=== PATIENT | male | born 1975 | race American Indian/Alaskan Native ===

== ENCOUNTER 2021-01-05 15:59 | Inpatient (IN) | payer OTHER ==
--- NOTE | 2021-01-05 17:16 | Event Note ---
ED Screening Note Date of service: 01/05/21 Time: 17:15 ED Screening Note: 45-year-old male presents to the ER today with complaints of shortness of breath. He states that symptoms started a couple days ago has been getting worse. He reports mild associated cough but no other symptoms. Past medical history significant for congestive heart failure, hypertension and hyperlipidemia. Patient states that he is lost insurance and has been out of his medication for about a year. He stopped smoking about 2 years ago This initial assessment/diagnostic orders/clinical plan/treatment(s) is/are subject to change based on patients health status, clinical progression and re- assessment by fellow clinical providers in the ED. Further treatment and workup at subsequent clinical providers discretion. Patient/guardian urged not to elope from the ED as their condition may be serious if not clinically assessed and managed. Initial orders include: Chest pain order set
[2021-01-05 18:02] LABS: Basophils # (Auto) 0.1 K/mm3 (0.0-0.1); Basophils % (Auto) 1.7 % (0.0-1.8); Eosinophils # (Auto) 0.1 K/mm3 (0.0-0.4); Hematocrit 36.6 % (35.5-45.6); Hemoglobin 11.3 gm/dl (11.8-15.2); Lymphocytes # (Auto) 1.2 K/mm3 (1.2-5.4); Lymphocytes % (Auto) 22.6 % (13.4-35.0); Mean Corpuscular HGB Conc 31 % (32-34); Mean Corpuscular Volume 87 fl (84-94); Monocytes # (Auto) 0.4 K/mm3 (0.0-0.8); Platelet Count 268 K/mm3 (140-440); Red Blood Count 4.24 M/mm3 (3.65-5.03); Red Cell Distribution Width 19.7 % (13.2-15.2)
[2021-01-05 18:09] LABS: Creatine Kinase MB 3.5 ng/mL (0.0-4.0)
[2021-01-05 18:12] LABS: Albumin 3.8 g/dL (3.9-5); Calcium 9.2 mg/dL (8.4-10.2)
[2021-01-05 18:14] LABS: INR 1.35 (0.87-1.13)
[2021-01-05 18:15] LABS: Partial Thromboplastin Time 34.9 Sec. (24.2-36.6)
[2021-01-05 18:37] LABS: Chol/HDL Ratio 4.36 %
[2021-01-05] MEDS ORDERED: FUROSEMIDE 40 MG/4 ML INJ IV ONE (18:45)
[2021-01-05] MEDS ORDERED: ASPIRIN 81 MG TAB CHEW PO ONE (18:45)
--- NOTE | 2021-01-05 18:50 | Emergency Department Report ---
ED General Adult HPI - General Chief complaint: Chest Pain Stated complaint: shortness of breath PUI?: No Time Seen by Provider: 01/05/21 18:37 Source: patient, RN notes reviewed Mode of arrival: Ambulatory Limitations: No Limitations - History of Present Illness Initial comments: The patient was evaluated in the emergency department for symptoms described in the history of present illness. He/she was evaluated in the context of the global COVID-19 pandemic, which necessitated consideration that the patient might be at risk for infection with the virus that causes COVID-19. Institutional protocols and algorithms that pertain to the evaluation of patients at risk for COVID-19 are in a state of rapid change based on info rmation released by regulatory bodies including the CDC and federal and state organizations. These policies and algorithms were followed during the patient's care in the emergency department. Please note that these policies, procedures and recommendations changed on a rapid basis. The patient is a 45-year-old gentleman. He is not known to myself previously. He has a history of CHF, diagnosed at [facility] 2 years ago. He occasionally consumes tobacco. He has been noncompliant with his medications for about a year. He does not know his ejection fraction. He presents to the ER today with a complaint of painless shortness of breath. The patient denies headache, neck pain, chest pain, abdominal pain. He denies travel, surgery, immobilization, leg pain, and personal/family history of DVT and pulmonary embolism. He went to an outpatient urgent care center today, was found to have a "abnormal" EKG, and was thus referred to the emergency room. His shortness of breath is painless, increases with ambulation, and decreases with rest. He chronically sleeps on one pillow. He has not received his Covid vaccination. He does not have a local primary care doctor or psychology lecturer. He denies loss of taste and smell. He came in today because his family is concerned about his exertional shortness of breath. He does feel like he has lower extremity swelling. -: Gradual, days(s) Consistency: constant Improves with: rest Worsens with: movement - Related Data Allergies Allergy/AdvReac Type Severity Reaction Status Date / Time No Known Allergies Allergy Unverified 01/05/21 16:04 ED Review of Systems ROS: Stated complaint: CHEST DISCOMFORT/EKG @DR OFFICE Other details as noted in HPI Constitutional: weakness, other (Denies loss of taste and smell). denies: fever ENT: congestion Respiratory: shortness of breath, SOB with exertion, SOB at rest Cardiovascular: dyspnea on exertion, orthopnea, edema, paroxysmal nocturnal dyspnea. denies: chest pain Gastrointestinal: denies: hematemesis, melena, hematochezia Genitourinary: denies: dysuria Musculoskeletal: denies: back pain Neurological: weakness Hematological/Lymphatic: denies: easy bleeding ED Past Medical Hx - Past Medical History Previous Medical History?: Yes Hx Hypertension: Yes Hx Congestive Heart Failure: Yes - Surgical History Past Surgical History?: No ED Physical Exam - General Limitations: No Limitations General appearance: alert, anxious, obese - Head Head exam: Present: atraumatic, normocephalic - Eye Eye exam: Present: normal appearance, EOMI. Absent: nystagmus - ENT ENT exam: Present: normal exam, normal orophraynx, mucous membranes moist - Neck Neck exam: Present: normal inspection, full ROM. Absent: tenderness, meningismus - Respiratory Respiratory exam: Present: rales, accessory muscle use. Absent: respiratory distress, wheezes, rhonchi, stridor - Cardiovascular Cardiovascular Exam: Present: normal rhythm, tachycardia, JVD (6 cm of JVD). Absent: bradycardia, irregular rhythm, systolic murmur, diastolic murmur, rubs, gallop - GI/Abdominal GI/Abdominal exam: Present: soft, normal bowel sounds. Absent: distended, tenderness, guarding, rebound, rigid, pulsatile mass - Rectal Rectal exam: Present: deferred - Extremities Exam Extremities exam: Present: normal inspection, full ROM, pedal edema (3+ edema in the bilateral lower extremities), other (2+ pulses noted in the bilateral upper and lower extremities. There is no palpable cord. negative Homans sign. Mus cular compartments are soft. The pelvis is stable.). Absent: calf tenderness - Back Exam Back exam: Present: normal inspection, full ROM. Absent: tenderness, CVA tenderness (R), CVA tenderness (L), paraspinal tenderness, vertebral tenderness - Neurological Exam Neurological exam: Present: alert, normal gait, other (No facial droop. Tongue midline. Extraocular movements intact bilaterally. Facial sensation intact to light touch in V1, V2, V3 distribution bilaterally. 5 and a 5 strength in 4 extremities. Sensation intact to light touch in 4 extremities.). Absent: motor sensory deficit - Psychiatric Psychiatric exam: Present: anxious - Skin Skin exam: Present: warm, dry, intact, normal color. Absent: rash ED Course Vital Signs 01/05/21 16:05 Temperature 98.3 F Pulse Rate 117 H Respiratory 18 Rate Blood Pressure 165/132 [Right] O2 Sat by Pulse 99 Oximetry ED Medical Decision Making - Lab Data Result diagrams: 01/05/21 17:31 01/05/21 17:31 Vital Signs 01/05/21 16:05 Temperature 98.3 F Pulse Rate 117 H Respiratory 18 Rate Blood Pressure 165/132 [Right] O2 Sat by Pulse 99 Oximetry Lab Results 01/05/21 01/05/21 01/05/21 Range/Units 17:31 17:31 17:31 WBC 5.1 (4.5-11.0) K/mm3 RBC 4.24 (3.65-5.03) M/mm3 Hgb 11.3 L (11.8-15.2) gm/dl Hct 36.6 (35.5-45.6) % MCV 87 (84-94) fl MCH 27 L (28-32) pg MCHC 31 L (32-34) % RDW 19.7 H (13.2-15.2) % Plt Count 268 (140-440) K/mm3 Lymph % (Auto) 22.6 (13.4-35.0) % [place] % (Auto) 7.0 (0.0-7.3) % Eos % (Auto) 1.0 (0.0-4.3) % Baso % (Auto) 1.7 (0.0-1.8) % Lymph # (Auto) 1.2 (1.2-5.4) K/mm3 [place] # (Auto) 0.4 (0.0-0.8) K/mm3 Eos # (Auto) 0.1 (0.0-0.4) K/mm3 Baso # (Auto) 0.1 (0.0-0.1) K/mm3 Seg Neutrophils % 67.7 (40.0-70.0) % Seg Neutrophils # 3.5 (1.8-7.7) K/mm3 PT 17.3 H (12.2-14.9) Sec. INR 1.35 H (0.87-1.13) APTT 34.9 (24.2-36.6) Sec. Sodium 140 (137-145) mmol/L Potassium 3.5 L (3.6-5.0) mmol/L Chloride 104.4 (98-107) mmol/L Carbon Dioxide 22 (22-30) mmol/L Anion Gap 17 mmol/L BUN 16 (9-20) mg/dL Creatinine 1.6 H (0.8-1.3) mg/dL Estimated GFR 47 ml/min BUN/Creatinine Ratio 10 % Glucose 75 (75-100) mg/dL Calcium 9.2 (8.4-10.2) mg/dL Total Bilirubin 2.10 H (0.1-1.2) mg/dL AST 45 H (5-40) units/L ALT 43 (7-56) units/L Alkaline Phosphatase 67 (35-129) units/L Total Creatine Kinase 114 (55-170) units/L CK-MB (CK-2) 3.5 (0.0-4.0) ng/mL CK-MB (CK-2) Rel Index 3.0 (0-4) Troponin T 1.640 H* (0.00-0.029) ng/mL NT-Pro-B Natriuret Pep (0-450) pg/mL Total Protein 7.4 (6.3-8.2) g/dL Albumin 3.8 L (3.9-5) g/dL Albumin/Globulin Ratio 1.1 % Triglycerides 81 (2-149) mg/dL Cholesterol 109 (50-199) mg/dL LDL Cholesterol Direct 71 (50-130) mg/dL HDL Cholesterol 25 L (40-59) mg/dL Cholesterol/HDL Ratio 4.36 % /14/ Range/Units 17:31 WBC (4.5-11.0) K/mm3 RBC (3.65-5.03) M/mm3 Hgb (11.8-15.2) gm/dl Hct (35.5-45.6) % MCV (84-94) fl MCH (28-32) pg MCHC (32-34) % RDW (13.2-15.2) % Plt Count (140-440) K/mm3 Lymph % (Auto) (13.4-35.0) % [place] % (Auto) (0.0-7.3) % Eos % (Auto) (0.0-4.3) % Baso % (Auto) (0.0-1.8) % Lymph # (Auto) (1.2-5.4) K/mm3 [place] # (Auto) (0.0-0.8) K/mm3 Eos # (Auto) (0.0-0.4) K/mm3 Baso # (Auto) (0.0-0.1) K/mm3 Seg Neutrophils % (40.0-70.0) % Seg Neutrophils # (1.8-7.7) K/mm3 PT (12.2-14.9) Sec. INR (0.87-1.13) APTT (24.2-36.6) Sec. Sodium (137-145) mmol/L Potassium (3.6-5.0) mmol/L Chloride (98-107) mmol/L Carbon Dioxide (22-30) mmol/L Anion Gap mmol/L BUN (9-20) mg/dL Creatinine (0.8-1.3) mg/dL Estimated GFR ml/min BUN/Creatinine Ratio % Glucose (75-100) mg/dL Calcium (8.4-10.2) mg/dL Total Bilirubin (0.1-1.2) mg/dL AST (5-40) units/L ALT (7-56) units/L Alkaline Phosphatase (35-129) units/L Total Creatine Kinase (55-170) units/L CK-MB (CK-2) (0.0-4.0) ng/mL CK-MB (CK-2) Rel Index (0-4) Troponin T (0.00-0.029) ng/mL NT-Pro-B Natriuret Pep 8895 H (0-450) pg/mL Total Protein (6.3-8.2) g/dL Albumin (3.9-5) g/dL Albumin/Globulin Ratio % Triglycerides (2-149) mg/dL Cholesterol (50-199) mg/dL LDL Cholesterol Direct (50-130) mg/dL HDL Cholesterol (40-59) mg/dL Cholesterol/HDL Ratio % - EKG Data -: EKG Interpreted by Ar EKG shows normal: sinus rhythm Rate: tachycardia - EKG Data 01/05/21 18:55 EKG interpreted at 16: 10 Sinus rhythm, tachycardia, normal P wave axis, rate 115 bpm. Left axis deviat ion, left anterior fascicular block, atrial enlargement, and motion artifact, with left ventricular hypertrophy. This is an abnormal EKG. This is not a STEMI. There is no prior for comparison. - Radiology Data Radiology results: pending, report reviewed, image reviewed interpreted by me: 2 view x-ray of the chest shows congestive heart failure, enlarged cardiac silhouette. Lower lobe opacities likely pulmonary edema. [facility] [address] [place] [address] XRay Report Signed Patient: FARIDEH LI MR#: [id number] : 1975 Acct:[id number] Age/Sex: 45 / M ADM Date: 01/05/21 Loc: ED Attending Dr: Ordering Physician: NANCY LITTLE Date of Service: 01/05/21 Procedure(s): XR chest routine 2V Accession Number(s): [id number] cc: NANCY LITTLE Fluoro Time In Minutes: CHEST 2 VIEWS INDICATION: Dyspnea. COMPARISON: None FINDINGS: SUPPORT DEVICES: None. HEART: Within normal limits. LUNGS/PLEURA: Mild interstitial edema with central predominant interstitial thickening. No consolidation or effusion. No pneumothorax. ADDITIONAL FINDINGS: None. IMPRESSION: 1. Pulmonary findings as above. Signer Name: Quinten Liu MD Signed: 01/05/2021 7:10 PM Workstation Name: [id number] Transcribed By: JESSICA Dictated By: Quinten Liu MD Electronically Authenticated By: Quinten Liu MD Signed Date/Time: 01/05/211909 DD/ 08 - Medical Decision Making Differential diagnosis, including but not limited to: Acute congestive heart failure, congestive heart failure exacerbation, noncompliance, hypertensive urgency, type II troponin leak Assessment and plan: 45-year-old gentleman, noncompliant with home medications for about 1 year, reported history of CHF, with crackles, rales, JVD, lower extremity edema, and pain with shortness of breath, suspicious for decompensated congestive heart failure examination. The patient denies DVT and pulmonary embolism risk factors. There may be a component of mild cardiorenal syndrome based off of his laboratory studies. He will be started on antihypertensive therapy, Lasix and aspirin. Elevated troponin impressive, but patient denies chest pain to myself. This is most likely a type II troponin leak. Contacted cardiology on-call, Dr. Romano, discussed the patient's history, physical, pertinent laboratory studies overall clinical impression, as well as EKG, and he has been transmitted a copy of this patient's EKG. We both agreed to withhold systemic anticoagulation at this time as this is likely a type II troponin leak. He is in agreement with admission to the medical service for the aforementioned. Patient is amenable to admission for management of acute decompensated congestive heart failure. Hospital physician, Dr. Craig, to admit patient to the medical service. Critical Care Time: Yes Critical care time in (mins) excluding proc time.: 35 Critical care attestation.: If time is entered above; I have spent that time in minutes in the direct care of this critically ill patient, excluding procedure time. ED Disposition Clinical Impression: Acute congestive heart failure, Hypertensive urgency, Noncompliance Disposition: -09 OP ADMIT IP TO THIS HOSP Is pt being admited?: Yes Does the pt Need Aspirin: No Condition: Serious
[2021-01-05] MEDS ORDERED: hydrALAZINE 20 MG/1 ML INJ IV ONE ×2 (18:58→23:59)
--- NOTE | 2021-01-05 19:14 | History and Physical Report ---
History of Present Illness Chief complaint: It is hard to breathe History of present illness: 45 YO Male with CHF, Nicotine Dependence, HTN, Medication Noncompliance presents to ED for evaluation. Pt reports "I cannot berathe". Patient states that he has experienced shortness of breath, decreased exercise tolerance, dyspnea on exertion, dyspnea at rest, orthopnea, paroxysmal nocturnal dyspnea over the past 1 week with persistently worsening symptoms over the same timeframe. Patient transported to [facility] via private vehicle for further care and evaluation of the aforementioned symptoms. The patient was seen and evaluated in the emergency department. All lab and imaging studies reviewed. Patient found to have clinical symptoms consistent with CHF decompensation as well as lab findings consistent with type II NSTEMI. Patient admitted to telemetry and initiated on ACS protocol. Cardiology team consulted in ED. Patient denies fever, chills, chest pain, palpitation, productive cough, skin rash, recent ill contacts, trauma, unilateral leg swelling, calf pain, prolonged travel/immobility, individual/family history of DVT/PE/bleeding/blood clotting disorders, or known exposure to COVID-19. No prior admission for review. No medication listed at time of admission for reconciliation. Past History Past Medical History: heart failure, hypertension, other (See HPI) Past Surgical History: No surgical history, Other (Reviewed) Social history: single Family history: hypertension Medications and Allergies Allergies Allergy/AdvReac Type Severity Reaction Status Date / Time No Known Allergies Allergy Unverified 01/05/21 16:04 Review of Systems Constitutional: no weight loss, no weight gain, no fever, no chills Ears, nose, mouth and throat: no ear pain, no tinnitis, no nasal congestion Cardiovascular: orthopnea, shortness of breath, dyspnea on exertion, paroxysmal nocturnal dyspnea, decreased exercise tolerance, no chest pain, no palpitations Respiratory: no cough, no excessive sputum, no hemoptysis Gastrointestinal: no abdominal pain, no nausea, no vomiting, no constipation, no change in bowel habits Genitourinary Male: no hematuria, no flank pain, no discharge, no urinary frequency, no urinary hesitancy Rectal: no pain, no incontinence, no bleeding Musculoskeletal: no neck stiffness, no shooting arm pain, no arm numbness/tingling, no shooting leg pain Integumentary: no rash, no pruritis, no redness, no sores, no wounds Neurological: no head injury, no transient paralysis, no weakness, no parathesias, no tingling, no syncope Psychiatric: no anxiety, no change in sleep habits, no insomnia, no change in libido, no suicidal ideation, no disorientation Endocrine: no cold intolerance, no polyphagia, no polydipsia, no polyuria, no excessive sweating Hematologic/Lymphatic: no easy bruising Allergic/Immunologic: no wheezing, no persistent infections, no angioedema Exam - Constitutional Vitals: Temp Pulse Resp BP Pulse Ox 98.3 F 117 H 18 165/132 99 01/05/21 16:05 01/05/21 16:05 01/05/21 16:05 01/05/21 16:05 01/05/21 16:05 General appearance: Present: mild distress - EENT Eyes: Present: PERRL ENT: hearing intact, clear oral mucosa - Neck Neck: Present: supple, normal ROM - Respiratory Respiratory effort: normal Respiratory: bilateral: diminished, rales - Cardiovascular Heart Sounds: Present: S1 & S2. Absent: rub, click - Extremities Extremities: pulses symmetrical, No edema Peripheral Pulses: within normal limits - Abdominal General gastrointestinal: Present: soft, non-tender, non-distended, normal bowel sounds Male genitourinary: Present: normal - Integumentary Integumentary: Present: clear, warm, dry - Musculoskeletal Musculoskeletal: gait normal, strength equal bilaterally - Psychiatric Psychiatric: appropriate mood/affect, intact judgment & insight - Neurologic Neurologic: CNII-XII intact, moves all extremities HEART Score - HEART Score Troponin: Troponin T 1.640 ng/mL (0.00-0.029) H* 01/05/21 17:31 Results - Labs CBC & Chem 7: 01/05/21 17:31 01/05/21 17:31 Labs: Abnormal lab results 01/05/21 01/05/21 01/05/21 Range/Units 17:31 17:31 17:31 Hgb 11.3 L (11.8-15.2) gm/dl MCH 27 L (28-32) pg MCHC 31 L (32-34) % RDW 19.7 H (13.2-15.2) % PT 17.3 H (12.2-14.9) Sec. INR 1.35 H (0.87-1.13) Potassium 3.5 L (3.6-5.0) mmol/L Creatinine 1.6 H (0.8-1.3) mg/dL Total Bilirubin 2.10 H (0.1-1.2) mg/dL AST 45 H (5-40) units/L Troponin T 1.640 H* (0.00-0.029) ng/mL NT-Pro-B Natriuret Pep (0-450) pg/mL Albumin 3.8 L (3.9-5) g/dL HDL Cholesterol 25 L (40-59) mg/dL 01/05/21 Range/Units 17:31 Hgb (11.8-15.2) gm/dl MCH (28-32) pg MCHC (32-34) % RDW (13.2-15.2) % PT (12.2-14.9) Sec. INR (0.87-1.13) Potassium (3.6-5.0) mmol/L Creatinine (0.8-1.3) mg/dL Total Bilirubin (0.1-1.2) mg/dL AST (5-40) units/L Troponin T (0.00-0.029) ng/mL NT-Pro-B Natriuret Pep 8895 H (0-450) pg/mL Albumin (3.9-5) g/dL HDL Cholesterol (40-59) mg/dL Assessment and Plan - Patient Problems (1) Acute congestive heart failure Current Visit: No Status: Acute Qualifiers: Heart failure type: systolic Qualified Code(s): I50.21 - Acute systolic (congestive) heart failure Plan to address problem: CHF Protocol: Strict I/O, bnp, supplemental oxygen, chest x ray, diuresis with lasix, Echo, cardiology consulted in ED, blood pressure control (2) NSTEMI (non-ST elevated myocardial infarction) Current Visit: Yes Status: Acute Plan to address problem: ACS protocol, serial cardiac enzymes, remote telemetry, supplemental oxygen, nitro, aspirin. cardiology consulted. (3) Hypertensive urgency Current Visit: No Status: Acute Plan to address problem: Monitor BP q shift, continue medical management. (4) Noncompliance Current Visit: No Status: Acute Plan to address problem: Pt counseled (5) DVT prophylaxis Current Visit: Yes Status: Acute Plan to address problem: SCD to BLE while in bed,
[2021-01-05] MEDS ORDERED: ONDANSETRON 4 MG/2 ML INJ IV PRN (19:15)
[2021-01-05] MEDS ORDERED: ACETAMINOPHEN 325 MG TAB PO PRN ×2 (19:15→19:17)
[2021-01-05] MEDS ORDERED: MORPHINE 4 MG/1 ML INJ IV PRN (19:15)
[2021-01-05] MEDS ORDERED: ALBUTEROL 2.5 MG/3 ML NEBU IH PRN (19:15)
--- NOTE | 2021-01-05 19:15 | XRay Report ---
CHEST 2 VIEWS INDICATION: Dyspnea. COMPARISON: None FINDINGS: SUPPORT DEVICES: None. HEART: Within normal limits. LUNGS/PLEURA: Mild interstitial edema with central predominant interstitial thickening. No consolidat ion or effusion. No pneumothorax. ADDITIONAL FINDINGS: None. IMPRESSION: 1. Pulmonary findings as above. Signer Name: Quinten Liu MD Signed: 01/05/2021 7:10 PM Workstation Name: [id number]
[2021-01-05] MEDS ORDERED: traMADol 50 MG TAB PO PRN (19:17)
[2021-01-05] MEDS ORDERED: NITROGLYCERIN 0.4 MG TAB SUBL SL PRN (19:17)
[2021-01-05] MEDS: amLODIPine 5 MG TAB PO SCH (20:55)
[2021-01-05] MEDS ORDERED: hydrALAZINE 20 MG/1 ML INJ IV PRN (21:17)
[2021-01-06] MEDS: FUROSEMIDE 20 MG/2 ML INJ IV SCH ×2 (05:36→18:27)
[2021-01-06] MEDS ORDERED: hydroCHLOROthiazide 12.5 MG CAP PO SCH (10:00)
[2021-01-06] MEDS: amLODIPine 5 MG TAB PO SCH (10:22)
[2021-01-06 10:23] LABS: Hematocrit 36.4 % (35.5-45.6); Hemoglobin 11.7 gm/dl (11.8-15.2); Mean Corpuscular HGB Conc 32 % (32-34); Mean Corpuscular Volume 87 fl (84-94); Platelet Count 236 K/mm3 (140-440); Red Cell Distribution Width 19.4 % (13.2-15.2)
[2021-01-06 10:35] LABS: BUN/Creatinine Ratio 11; Blood Urea Nitrogen 16 mg/dL (9-20); Calcium 9.3 mg/dL (8.4-10.2); Hemolysis Index 0
[2021-01-06] MEDS ORDERED: FLU VACC QUAD 2020-2021 (6 months +)/PF 60 0.5 ML SYRINGE IM ONE (12:00)
--- NOTE | 2021-01-06 13:53 | Progress Note ---
Assessment and Plan Assessment and plan: Acute congestive heart failure Patient admitted to Telemetry. CHF Protocol: Strict I/O, supplemental oxygen, chest x ray, diuresis with lasix, Echo done report pending cardiology consulted in ED, blood pressure control (NSTEMI (non-ST elevated myocardial infarction) Troponins were elevated 1.6 - 1.4 - 1.3 ACS protocol, serial cardiac enzymes, supplemental oxygen, nitro, aspirin. cardiology consulted. No chest pain currently Add Aspirin 325 mg daily Add Metoprolol 25mg bid Hypertensive urgency Monitor BP q shift, continue medical management. Added metoprolol Hydralazine iv prn for uyncontrolled BP Noncompliance Pt counseled DVT prophylaxis SCD to BLE while in bed, Full code History Interval history: Patient presented with shortness of breath No chest pain Hospitalist Physical - Physical exam Narrative exam: Gen: Not in acute distress, lying in bed HEENT: Normochephalic, atraumatic Neck:supple, No JVD Lungs: Bilateral basal rales, no wheeze Heart:S1 and S2 reg, no murmurs, rubs or gallop Abd: soft, non tender, non distended, normal bowel sounds Ext: Bilateral pitting pedal edema, no clubbing, no cyanosis Neuro:Awake,alert,oriented X 3, moves all ext, no focal neurological signs - Constitutional Vitals: Temp Pulse Resp BP Pulse Ox 97.9 F 71 18 161/113 99 01/06/21 06:58 01/06/21 13:18 01/06/21 06:58 01/06/21 06:58 01/06/21 09:17 HEART Score - HEART Score Troponin: Troponin T 1.390 ng/mL (0.00-0.029) H* 01/06/21 04:11 Results - Labs CBC & Chem 7: 01/06/21 10:08 01/06/21 10:08 Labs: Laboratory Last Values WBC 6.0 K/mm3 (4.5-11.0) 01/06/21 10:08 RBC 4.20 M/mm3 (3.65-5.03) 01/06/21 10:08 Hgb 11.7 gm/dl (11.8-15.2) L 01/06/21 10:08 Hct 36.4 % (35.5-45.6) 01/06/21 10:08 MCV 87 fl (84-94) 01/06/21 10:08 MCH 28 pg (28-32) 01/06/21 10:08 MCHC 32 % (32-34) 01/06/21 10:08 RDW 19.4 % (13.2-15.2) H 01/06/21 10:08 Plt Count 236 K/mm3 (140-440) 01/06/21 10:08 Lymph % (Auto) 22.6 % (13.4-35.0) 01/05/21 17:31 [place] % (Auto) 7.0 % (0.0-7.3) 01/05/21 17:31 Eos % (Auto) 1.0 % (0.0-4.3) 01/05/21 17:31 Baso % (Auto) 1.7 % (0.0-1.8) 01/05/21 17:31 Lymph # (Auto) 1.2 K/mm3 (1.2-5.4) 01/05/21 17:31 [place] # (Auto) 0.4 K/mm3 (0.0-0.8) 01/05/21 17:31 Eos # (Auto) 0.1 K/mm3 (0.0-0.4) 01/05/21 17:31 Baso # (Auto) 0.1 K/mm3 (0.0-0.1) 01/05/21 17:31 Seg Neutrophils % 67.7 % (40.0-70.0) 01/05/21 17:31 Seg Neutrophils # 3.5 K/mm3 (1.8-7.7) 01/05/21 17:31 PT 17.3 Sec. (12.2-14.9) H 01/05/21 17:31 INR 1.35 (0.87-1.13) H 01/05/21 17:31 APTT 34.9 Sec. (24.2-36.6) 01/05/21 17:31 Sodium 145 mmol/L (137-145) 01/06/21 10:08 Potassium 3.6 mmol/L (3.6-5.0) 01/06/21 10:08 Chloride 104.8 mmol/L (98-107) 01/06/21 10:08 Carbon Dioxide 27 mmol/L (22-30) 01/06/21 10:08 Anion Gap 17 mmol/L 01/06/21 10:08 BUN 16 mg/dL (9-20) 01/06/21 10:08 Creatinine 1.4 mg/dL (0.8-1.3) H 01/06/21 10:08 Estimated GFR > 60 ml/min 01/06/21 10:08 BUN/Creatinine Ratio 11 % 01/06/21 10:08 Glucose 73 mg/dL (75-100) L 01/06/21 10:08 Calcium 9.3 mg/dL (8.4-10.2) 01/06/21 10:08 Total Bilirubin 2.10 mg/dL (0.1-1.2) H 01/05/21 17:31 AST 45 units/L (5-40) H 01/05/21 17:31 ALT 43 units/L (7-56) 01/05/21 17:31 Alkaline Phosphatase 67 units/L (35-129) 01/05/21 17:31 Total Creatine Kinase 114 units/L (55-170) 01/05/21 17:31 CK-MB (CK-2) 3.5 ng/mL (0.0-4.0) 01/05/21 17:31 CK-MB (CK-2) Rel Index 3.0 (0-4) 01/05/21 17:31 Troponin T 1.390 ng/mL (0.00-0.029) H* 01/06/21 04:11 NT-Pro-B Natriuret Pep 8895 pg/mL (0-450) H 01/05/21 17:31 Total Protein 7.4 g/dL (6.3-8.2) 01/05/21 17:31 Albumin 3.8 g/dL (3.9-5) L 01/05/21 17:31 Albumin/Globulin Ratio 1.1 % 01/05/21 17:31 Triglycerides 81 mg/dL (2-149) 01/05/21 17:31 Cholesterol 109 mg/dL (50-199) 01/05/21 17:31 LDL Cholesterol Direct 71 mg/dL (50-130) 01/05/21 17:31 HDL Cholesterol 25 mg/dL (40-59) L 01/05/21 17:31 Cholesterol/HDL Ratio 4.36 % 01/05/21 17:31 [place]/IV: Voiding Method Toilet Active Medications - Current Medications Current Medications: Generic Name Dose Route Start Last Admin Trade Name Freq PRN Reason Stop Dose Admin Acetaminophen 650 mg 01/05/21 19:15 Acetaminophen 325 Mg Tab PO Q4H PRN Pain MILD(1-3)/Fever >100.5/MCLEOD Albuterol 2.5 mg 01/05/21 19:15 Albuterol 2.5 Mg/3 Ml Nebu IH Q4H PRN Shortness Of Breath Amlodipine Besylate 2.5 mg 01/05/21 19:20 01/06/21 10:22 Amlodipine 5 Mg Tab PO 2.5 mg QDAY SANKET Administration Furosemide 20 mg 01/06/21 06:00 01/06/21 05:36 Furosemide 20 Mg/2 Ml Inj IV 20 mg 0600,1800 SANKET Administration Hydralazine HCl 10 mg 01/05/21 21:17 Hydralazine 20 Mg/1 Ml Inj IV Q6HR PRN Hypertension Hydrochlorothiazide 12.5 mg 01/06/21 10:00 01/06/21 10:22 Hydrochlorothiazide 12.5 Mg Cap PO 12.5 mg QDAY SANKET Administration Morphine Sulfate 1 mg 01/05/21 19:15 Morphine 4 Mg/1 Ml Inj IV Q4H PRN Pain , Severe (7-10) Nitroglycerin 0.4 mg 01/05/21 19:17 Nitroglycerin 0.4 Mg Tab Subl SL Q5M PRN Chest Pain Ondansetron HCl 4 mg 01/05/21 19:15 Ondansetron 4 Mg/2 Ml Inj IV Q8H PRN Nausea And Vomiting Sodium Chloride 10 ml 01/05/21 22:00 01/06/21 10:23 Sodium Chloride 0.9% 10 Ml Flush Syringe IV 10 ml BID SANKET Administration Sodium Chloride 10 ml 01/05/21 19:15 Sodium Chloride 0.9% 10 Ml Flush Syringe IV PRN PRN LINE FLUSH Tramadol HCl 50 mg 01/05/21 19:17 Tramadol 50 Mg Tab PO Q6H PRN Pain, Moderate (4-6) Nutrition/Malnutrition Assess - Dietary Evaluation Nutrition/Malnutrition Findings: Nutrition Notes Start: 01/06/21 13:15 Freq: Status: Active Protocol: Document 01/06/21 13:15 MOISE (Rec: 01/06/21 13:17 MOISE [id number]) Nutrition Notes Need for Assessment generated from: legal transcriptionist,MST Initial or Follow up Brief Note Current Diagnosis Hypertension,Heart Failure Other Pertinent Diagnosis NSTEMI Current Diet Cardiac Subjective/Other Information RN screen for MST. Pt reports no wt loss. At time of visit, pt is NPO. Pt complains of hunger. Pt diet advanced for lunch. Nutrition Intervention Revisit per MD consult or patient Sign Off request:
[2021-01-06] MEDS ORDERED: METOPROLOL TARTRATE 25 MG TAB PO SCH (14:00)
[2021-01-06] MEDS: ASPIRIN 325 MG TAB PO SCH (15:19)
--- NOTE | 2021-01-06 15:30 | Consultation ---
History of Present Illness Consult date: 01/06/21 Requesting physician: FOREST SALCIDO Consult reason: congestive heart failure, elevated troponin History of present illness: This patient is a 45-year-old male with a significant history of congestive heart failure, nicotine dependence, hypertension, medication noncompliance. He is previously unknown to our practice and is not currently followed by cardiology. He presents to [facility] ER with chief complaint of shortness of breath, decreased exercise tolerance, exertional dyspnea, orthopnea, PND x1 week. BNP is noted to be elevated 8800 upon admission. Cardiology is consulted for acute on chronic heart failure and elevated troponins. At time of interview chest pain is currently resolved. Patient denies any shortness of breath, weakness, dizziness, abdominal pain, N/V/D, recent illness or known exposures. Patient is aware of chronic heart failure diagnosis and has significant history of EtOH use. Patient states previous EtOH use of approximately 1 bottle of liquor daily, but has been abstinent x3 years. Past History Past Medical History: heart failure, hypertension, other (See HPI) Past Surgical History: No surgical history, Other (Reviewed) Social history: single Family history: hypertension Medications and Allergies Allergies Allergy/AdvReac Type Severity Reaction Status Date / Time No Known Allergies Allergy Unverified 01/05/21 16:04 Active Meds: Active Medications Acetaminophen (Acetaminophen 325 Mg Tab) 650 mg PO Q4H PRN PRN Reason: Pain MILD(1-3)/Fever >100.5/MCLEOD Albuterol (Albuterol 2.5 Mg/3 Ml Nebu) 2.5 mg IH Q4H PRN PRN Reason: Shortness Of Breath Amlodipine Besylate (Amlodipine 5 Mg Tab) 2.5 mg PO QDAY [facility] Last Admin: 01/06/21 10:22 Dose: 2.5 mg Documented by: Aspirin (Aspirin 325 Mg Tab) 325 mg PO QDAY [facility] Last Admin: 01/06/21 15:19 Dose: 325 mg Documented by: Furosemide (Furosemide 20 Mg/2 Ml Inj) 20 mg IV 0600,1800 [facility] Last Admin: 01/06/21 05:36 Dose: 20 mg Documented by: Hydralazine HCl (Hydralazine 20 Mg/1 Ml Inj) 10 mg IV Q6HR PRN PRN Reason: Hypertension Hydrochlorothiazide (Hydrochlorothiazide 12.5 Mg Cap) 12.5 mg PO QDAY [facility] Last Admin: 01/06/21 10:22 Dose: 12.5 mg Documented by: Metoprolol Tartrate (Metoprolol Tartrate 25 Mg Tab) 25 mg PO BID [facility] Last Admin: 01/06/21 15:19 Dose: 25 mg Documented by: Morphine Sulfate (Morphine 4 Mg/1 Ml Inj) 1 mg IV Q4H PRN PRN Reason: Pain , Severe (7-10) Nitroglycerin (Nitroglycerin 0.4 Mg Tab Subl) 0.4 mg SL Q5M PRN PRN Reason: Chest Pain Ondansetron HCl (Ondansetron 4 Mg/2 Ml Inj) 4 mg IV Q8H PRN PRN Reason: Nausea And Vomiting Sodium Chloride (Sodium Chloride 0.9% 10 Ml Flush Syringe) 10 ml IV BID [facility] Last Admin: 01/06/21 10:23 Dose: 10 ml Documented by: Sodium Chloride (Sodium Chloride 0.9% 10 Ml Flush Syringe) 10 ml IV PRN PRN PRN Reason: LINE FLUSH Tramadol HCl (Tramadol 50 Mg Tab) 50 mg PO Q6H PRN PRN Reason: Pain, Moderate (4-6) Review of Systems Constitutional: no weight loss, no weight gain, no fever, no chills, no sweats, no night sweats Ears, nose, mouth and throat: no ear pain, no ear discharge, no nose pain, no nasal congestion, no nasal discharge Cardiovascular: orthopnea, shortness of breath, dyspnea on exertion, paroxysmal nocturnal dyspnea, decreased exercise tolerance, no chest pain, no palpitations, no rapid/irregular heart beat, no edema, no syncope, no lightheadedness, no claudication, no phlebitis, no high blood pressure, no leg edema Respiratory: shortness of breath, dyspnea on exertion, no cough, no hemoptysis Gastrointestinal: no abdominal pain, no nausea, no vomiting, no diarrhea Genitourinary Male: no flank pain Musculoskeletal: no neck stiffness, no neck pain, no shooting arm pain, no arm numbness/tingling, no low back pain Integumentary: no rash, no pruritis, no redness, no sores, no wounds Neurological: no head injury, no paralysis, no weakness, no parathesias, no numbness, no tingling, no seizures, no syncope Psychiatric: no anxiety Endocrine: no cold intolerance, no heat intolerance Hematologic/Lymphatic: no easy bruising, no easy bleeding Allergic/Immunologic: no urticaria Physical Examination Last Vital Signs Temp 97.9 F 01/06/21 06:58 Pulse 71 01/06/21 13:18 Resp 18 01/06/21 06:58 BP 161/113 01/06/21 06:58 Pulse Ox 99 01/06/21 09:17 General appearance: no acute distress HEENT: Positive: PERRL, Normocephaly, Mucus Membranes Moist Neck: Positive: neck supple, trachea midline Cardiac: Positive: Regular Rhythm, S1/S2 Lungs: Positive: Normal Exam, Normal Breath Sounds Neuro: Positive: Grossly Intact Abdomen: Positive: Soft Skin: Negative: Rash, Wound Musculoskeletal: No Pain Extremities: Present: upper extr. pulses, lower extr. pulses. Absent: edema Results 01/06/21 10:08 01/06/21 10:08 Cardiac Enzymes 01/05/21 Range/Units 17:31 AST 45 H (5-40) units/L CK-MB (CK-2) 3.5 (0.0-4.0) ng/mL Coagulation 01/05/21 Range/Units 17:31 PT 17.3 H (12.2-14.9) Sec. INR 1.35 H (0.87-1.13) APTT 34.9 (24.2-36.6) Sec. Lipids 01/05/21 Range/Units 17:31 Triglycerides 81 (2-149) mg/dL Cholesterol 109 (50-199) mg/dL HDL Cholesterol 25 L (40-59) mg/dL Cholesterol/HDL Ratio 4.36 % CBC 01/05/21 01/06/21 Range/Units 17:31 10:08 WBC 5.1 6.0 (4.5-11.0) K/mm3 RBC 4.24 4.20 (3.65-5.03) M/mm3 Hgb 11.3 L 11.7 L (11.8-15.2) gm/dl Hct 36.6 36.4 (35.5-45.6) % Plt Count 268 236 (140-440) K/mm3 Lymph # (Auto) 1.2 (1.2-5.4) K/mm3 [place] # (Auto) 0.4 (0.0-0.8) K/mm3 Eos # (Auto) 0.1 (0.0-0.4) K/mm3 Baso # (Auto) 0.1 (0.0-0.1) K/mm3 Comprehensive Metabolic Panel 01/05/21 01/06/21 Range/Units 17:31 10:08 Sodium 140 145 (137-145) mmol/L Potassium 3.5 L 3.6 (3.6-5.0) mmol/L Chloride 104.4 104.8 (98-107) mmol/L Carbon Dioxide 22 27 (22-30) mmol/L BUN 16 16 (9-20) mg/dL Creatinine 1.6 H 1.4 H (0.8-1.3) mg/dL Glucose 75 73 L (75-100) mg/dL Calcium 9.2 9.3 (8.4-10.2) mg/dL AST 45 H (5-40) units/L ALT 43 (7-56) units/L Alkaline Phosphatase 67 (35-129) units/L Total Protein 7.4 (6.3-8.2) g/dL Albumin 3.8 L (3.9-5) g/dL - Imaging and Cardiology Echo: pending EKG: report reviewed, image reviewed EKG interpretations - Telemetry EKG Rhythm: Sinus Tachycardia - EKG Sinus rhythms and dysrhythmias: sinus rhythm AV and intraventricular conduction: 2 to 1 AV block Assessment and Plan NSTEMI * Patient is currently chest pain free. Troponins are elevated but trending downward. Continue to trend CE's. Compensated heart failure with reduced ejection fraction in setting of dilated cardiomyopathy * Echocardiogram reviewed (01/16/2021): LVEF is 25%. Moderate concentric LVH. Left ventricle is moderately dilated. Left ventricular diastolic function is indeterminate. Severe hypokinesis involving the septal, anterior and anterior lateral seay. Right ventricle is moderately dilated. Left atrium is moderately dilated. Mild mitral regurg. * Patient does appear to be near euvolemia and is currently asymptomatic. Optimize volume control: Reduce Lasix IV to Lasix 40 mg p.o. daily. Discontinue hydrochlorothiazide. * We will plan for cardiac cath on , Tuesday pending clinical course. Acute kidney injury * No CASPER/ARB in setting of OCTAVIO. Avoid nephrotoxic agents DVT prophylaxis * Heparin SQ We will plan for cardiac cath on /Tuesday pending clinical course. We will follow This patient was seen in conjunction with Dr. Jace Flor who agrees this assessment plan of care - Patient Problems (1) Heart failure Current Visit: Yes Status: Acute (2) DVT prophylaxis Current Visit: Yes Status: Acute (3) NSTEMI (non-ST elevated myocardial infarction) Current Visit: Yes Status: Acute (4) Hypokalemia Current Visit: Yes Status: Acute (5) Acute kidney injury Current Visit: Yes Status: Acute
[2021-01-06] MEDS: carvediloL 6.25 MG TAB PO SCH ×2 (17:30→22:04)
[2021-01-06] MEDS ORDERED: carvediloL 12.5 MG TAB PO SCH (22:00)
[2021-01-06] MEDS: HEPARIN 5,000 UNIT/1 ML VIAL SUB-Q SCH (22:04)
[2021-01-06] MEDS: SACUBITRIL/VALSARTAN 24-26 MG TAB PO SCH (22:05)
[2021-01-07 05:04] LABS: Hematocrit 36.8 % (35.5-45.6); Hemoglobin 11.5 gm/dl (11.8-15.2); Mean Corpuscular HGB Conc 31 % (32-34); Mean Corpuscular Volume 86 fl (84-94); Platelet Count 252 K/mm3 (140-440); Red Blood Count 4.28 M/mm3 (3.65-5.03); Red Cell Distribution Width 19.8 % (13.2-15.2)
[2021-01-07 05:15] LABS: INR 1.24 (0.87-1.13)
[2021-01-07 05:27] LABS: BUN/Creatinine Ratio 11; Blood Urea Nitrogen 16 mg/dL (9-20); Calcium 8.8 mg/dL (8.4-10.2); Hemolysis Index 0
[2021-01-07] MEDS ORDERED: POTASSIUM CHLORIDE ER 20 MEQ TAB PO ONE ×2 (06:00→10:00)
[2021-01-07] MEDS: ASPIRIN 325 MG TAB PO SCH (09:42)
[2021-01-07] MEDS: carvediloL 6.25 MG TAB PO SCH ×2 (09:42→21:18)
[2021-01-07] MEDS: SACUBITRIL/VALSARTAN 24-26 MG TAB PO SCH ×2 (09:43→21:18)
[2021-01-07] MEDS: HEPARIN 5,000 UNIT/1 ML VIAL SUB-Q SCH ×2 (09:44→21:18)
[2021-01-07] MEDS ORDERED: FUROSEMIDE 40 MG TAB PO SCH ×2 (10:00→15:25)
[2021-01-07] MEDS: POTASSIUM CHLORIDE 10 MEQ 10 MEQ/100 ML BAG IV SCH ×5 (11:33→15:10)
--- NOTE | 2021-01-07 12:58 | Progress Note ---
Assessment and Plan Assessment and plan: Acute on chronic congestive heart failure Patient admitted to Telemetry. CHF Protocol: Strict I/O, supplemental oxygen, chest x ray, diuresis with lasix, Echo done report pending cardiology consulted in ED, blood pressure control Elevated Troponin Troponins were elevated 1.6 - 1.4 - 1.3 ACS protocol, serial cardiac enzymes, supplemental oxygen, nitro, aspirin. cardiology consulted. No chest pain currently Added Aspirin 325 mg daily Added Metoprolol 25mg bid Hypertensive urgency Monitor BP q shift, continue medical management. Added metoprolol Hydralazine iv prn for uyncontrolled BP Noncompliance Pt counseled DVT prophylaxis SCD to BLE while in bed, Full code 01/07/21 Patient presented with shortness of breath diagnosed with acute on chronic CHF. Echo done, report pending. Troponins are high but not NSTEMI as per cardiology History Interval history: Patient presented with shortness of breath No chest pain Less SOB Hospitalist Physical - Physical exam Narrative exam: Gen: Not in acute distress, lying in bed HEENT: Normochephalic, atraumatic Neck:supple, No JVD Lungs: Bilateral basal rales, no wheeze Heart:S1 and S2 reg, no murmurs, rubs or gallop Abd: soft, non tender, non distended, normal bowel sounds Ext: Bilateral pitting pedal edema, no clubbing, no cyanosis Neuro:Awake,alert,oriented X 3, moves all ext, no focal neurological signs - Constitutional Vitals: Temp Pulse Resp BP Pulse Ox 97.3 F L 88 20 127/92 99 01/07/21 07:16 01/07/21 09:42 01/07/21 07:16 01/07/21 09:42 01/07/21 10:00 General appearance: Present: no acute distress HEART Score - HEART Score Troponin: Troponin T 1.230 ng/mL (0.00-0.029) H* 01/07/21 04:04 Results - Labs CBC & Chem 7: 01/07/21 04:04 01/07/21 04:04 Labs: Laboratory Last Values WBC 5.2 K/mm3 (4.5-11.0) 01/07/21 04:04 RBC 4.28 M/mm3 (3.65-5.03) 01/07/21 04:04 Hgb 11.5 gm/dl (11.8-15.2) L 01/07/21 04:04 Hct 36.8 % (35.5-45.6) 01/07/21 04:04 MCV 86 fl (84-94) 01/07/21 04:04 MCH 27 pg (28-32) L 01/07/21 04:04 MCHC 31 % (32-34) L 01/07/21 04:04 RDW 19.8 % (13.2-15.2) H 01/07/21 04:04 Plt Count 252 K/mm3 (140-440) 01/07/21 04:04 Lymph % (Auto) 22.6 % (13.4-35.0) 01/05/21 17:31 [place] % (Auto) 7.0 % (0.0-7.3) 01/05/21 17:31 Eos % (Auto) 1.0 % (0.0-4.3) 01/05/21 17:31 Baso % (Auto) 1.7 % (0.0-1.8) 01/05/21 17:31 Lymph # (Auto) 1.2 K/mm3 (1.2-5.4) 01/05/21 17:31 [place] # (Auto) 0.4 K/mm3 (0.0-0.8) 01/05/21 17:31 Eos # (Auto) 0.1 K/mm3 (0.0-0.4) 01/05/21 17:31 Baso # (Auto) 0.1 K/mm3 (0.0-0.1) 01/05/21 17:31 Seg Neutrophils % 67.7 % (40.0-70.0) 01/05/21 17:31 Seg Neutrophils # 3.5 K/mm3 (1.8-7.7) 01/05/21 17:31 PT 16.2 Sec. (12.2-14.9) H 01/07/21 04:04 INR 1.24 (0.87-1.13) H 01/07/21 04:04 APTT 34.9 Sec. (24.2-36.6) 01/05/21 17:31 Sodium 146 mmol/L (137-145) H 01/07/21 04:04 Potassium 2.7 mmol/L (3.6-5.0) L* D 01/07/21 04:04 Chloride 103.1 mmol/L (98-107) 01/07/21 04:04 Carbon Dioxide 30 mmol/L (22-30) 01/07/21 04:04 Anion Gap 16 mmol/L 01/07/21 04:04 BUN 16 mg/dL (9-20) 01/07/21 04:04 Creatinine 1.4 mg/dL (0.8-1.3) H 01/07/21 04:04 Estimated GFR > 60 ml/min 01/07/21 04:04 BUN/Creatinine Ratio 11 % 01/07/21 04:04 Glucose 70 mg/dL (75-100) L 01/07/21 04:04 POC Glucose 101 mg/dL (70-105) 01/07/21 12:03 Calcium 8.8 mg/dL (8.4-10.2) 01/07/21 04:04 Total Bilirubin 2.10 mg/dL (0.1-1.2) H 01/05/21 17:31 AST 45 units/L (5-40) H 01/05/21 17:31 ALT 43 units/L (7-56) 01/05/21 17:31 Alkaline Phosphatase 67 units/L (35-129) 01/05/21 17:31 Total Creatine Kinase 114 units/L (55-170) 01/05/21 17:31 CK-MB (CK-2) 3.5 ng/mL (0.0-4.0) 01/05/21 17:31 CK-MB (CK-2) Rel Index 3.0 (0-4) 01/05/21 17:31 Troponin T 1.230 ng/mL (0.00-0.029) H* 01/07/21 04:04 NT-Pro-B Natriuret Pep 8895 pg/mL (0-450) H 01/05/21 17:31 Total Protein 7.4 g/dL (6.3-8.2) 01/05/21 17:31 Albumin 3.8 g/dL (3.9-5) L 01/05/21 17:31 Albumin/Globulin Ratio 1.1 % 01/05/21 17:31 Triglycerides 81 mg/dL (2-149) 01/05/21 17:31 Cholesterol 109 mg/dL (50-199) 01/05/21 17:31 LDL Cholesterol Direct 71 mg/dL (50-130) 01/05/21 17:31 HDL Cholesterol 25 mg/dL (40-59) L 01/05/21 17:31 Cholesterol/HDL Ratio 4.36 % 01/05/21 17:31 Laboy/IV: Voiding Method Urinal Active Medications - Current Medications Current Medications: Generic Name Dose Route Start Last Admin Trade Name Freq PRN Reason Stop Dose Admin Acetaminophen 650 mg 01/05/21 19:15 Acetaminophen 325 Mg Tab PO Q4H PRN Pain MILD(1-3)/Fever >100.5/MCLEOD Albuterol 2.5 mg 01/05/21 19:15 Albuterol 2.5 Mg/3 Ml Nebu IH Q4H PRN Shortness Of Breath Aspirin 325 mg 01/06/21 14:00 01/07/21 09:42 Aspirin 325 Mg Tab PO 325 mg QDAY SANKET Administration Carvedilol 6.25 mg 01/06/21 16:34 01/07/21 09:42 Carvedilol 6.25 Mg Tab PO 6.25 mg BID SANKET Administration Furosemide 40 mg 01/07/21 10:00 01/07/21 09:42 Furosemide 40 Mg Tab PO 40 mg QDAY SANKET Administration Heparin Sodium (Porcine) 5,000 unit 01/06/21 22:00 01/07/21 09:44 Heparin 5,000 Unit/1 Ml Vial SUB-Q 5,000 unit Q12HR SANKET Administration Hydralazine HCl 10 mg 01/05/21 21:17 Hydralazine 20 Mg/1 Ml Inj IV Q6HR PRN Hypertension Morphine Sulfate 1 mg 01/05/21 19:15 Morphine 4 Mg/1 Ml Inj IV Q4H PRN Pain , Severe (7-10) Nitroglycerin 0.4 mg 01/05/21 19:17 Nitroglycerin 0.4 Mg Tab Subl SL Q5M PRN Chest Pain Ondansetron HCl 4 mg 01/05/21 19:15 Ondansetron 4 Mg/2 Ml Inj IV Q8H PRN Nausea And Vomiting Sodium Chloride 10 ml 01/05/21 22:00 01/07/21 09:50 Sodium Chloride 0.9% 10 Ml Flush Syringe IV 10 ml BID SANKET Administration Sodium Chloride 10 ml 06/14/21 19:15 Sodium Chloride 0.9% 10 Ml Flush Syringe IV PRN PRN LINE FLUSH Tramadol HCl 50 mg 01/05/21 19:17 Tramadol 50 Mg Tab PO Q6H PRN Pain, Moderate (4-6) Nutrition/Malnutrition Assess - Dietary Evaluation Nutrition/Malnutrition Findings: Nutrition Notes Start: 01/06/21 13:15 Freq: Status: Active Protocol: Document 01/06/21 13:15 (Rec: 01/06/21 13:17 [id number]) Nutrition Notes Need for Assessment generated from: pet ambassador,MST Initial or Follow up Brief Note Current Diagnosis Hypertension,Heart Failure Other Pertinent Diagnosis NSTEMI Current Diet Cardiac Subjective/Other Information RN screen for MST. Pt reports no wt loss. At time of visit, pt is NPO. Pt complains of hunger. Pt diet advanced for lunch. Nutrition Intervention Revisit per MD consult or patient Sign Off request:
--- NOTE | 2021-01-07 15:17 | Progress Note ---
Assessment and Plan NSTEMI * Patient is currently chest pain free. Troponins are elevated but trending downward. Continue to trend CE's. * Patient had left heart cath at [facility] in 2017 which showed normal coronary arteries. Compensated heart failure with reduced ejection fraction in setting of dilated cardiomyopathy * Echocardiogram reviewed (01/16/2021): LVEF is 25%. Moderate concentric LVH. Left ventricle is moderately dilated. Left ventricular diastolic function is indeterminate. Severe hypokinesis involving the septal, anterior and anterior lateral seay. Right ventricle is moderately dilated. Left atrium is moderately dilated. Mild mitral regurg. * Patient does appear to be near euvolemia and is currently asymptomatic. Optimize volume control. Reduce lasix to 20mg p.o. daily. Hypokalemia * Replete potassium. Wean diuretics Acute kidney injury * No CASPER/ARB in setting of OCTAVIO. Avoid nephrotoxic agents DVT prophylaxis * Heparin SQ Patient is nearing euvolemia. Address severe hypokalemia. We will follow This patient was seen in conjunction with who agrees this assessment plan of care - Patient Problems (1) Heart failure Current Visit: Yes Status: Acute (2) DVT prophylaxis Current Visit: Yes Status: Acute (3) NSTEMI (non-ST elevated myocardial infarction) Current Visit: Yes Status: Acute (4) Hypokalemia Current Visit: Yes Status: Acute (5) Acute kidney injury Current Visit: Yes Status: Acute Subjective Date of service: 01/07/21 Principal diagnosis: NSTEMI, HFrEF Interval history: Patient resting comfortably in bed. No shortness of breath or chest pain overnight Telemetry reviewed: Sinus rhythm 88. No events Objective Last Vital Signs Temp 97.3 F L 01/07/21 07:16 Pulse 88 01/07/21 09:42 Resp 20 01/07/21 07:16 BP 127/92 01/07/21 09:42 Pulse Ox 99 01/07/21 10:00 - Physical Examination General: No Apparent Distress HEENT: Positive: PERRL, Normocephaly, Mucus Membranes Moist Neck: Positive: neck supple, trachea midline Cardiac: Positive: Reg Rate and Rhythm, S1/S2 Lungs: Positive: Normal Exam, Normal Breath Sounds Neuro: Positive: Grossly Intact Abdomen: Positive: Soft Skin: Negative: Rash, Wound Musculoskeletal: No Pain Extremities: Present: upper extr. pulses, lower extr. pulses. Absent: edema - Labs and Meds Coagulation 01/07/21 Range/Units 04:04 PT 16.2 H (12.2-14.9) Sec. INR 1.24 H (0.87-1.13) CBC 01/07/21 Range/Units 04:04 WBC 5.2 (4.5-11.0) K/mm3 RBC 4.28 (3.65-5.03) M/mm3 Hgb 11.5 L (11.8-15.2) gm/dl Hct 36.8 (35.5-45.6) % Plt Count 252 (140-440) K/mm3 Comprehensive Metabolic Panel 01/07/21 Range/Units 04:04 Sodium 146 H (137-145) mmol/L Potassium 2.7 L* D (3.6-5.0) mmol/L Chloride 103.1 (98-107) mmol/L Carbon Dioxide 30 (22-30) mmol/L BUN 16 (9-20) mg/dL Creatinine 1.4 H (0.8-1.3) mg/dL Glucose 70 L (75-100) mg/dL Calcium 8.8 (8.4-10.2) mg/dL - Imaging and Cardiology EKG: report reviewed, image reviewed Echo: report reviewed - Telemetry EKG Rhythm: Sinus Rhythm - EKG Sinus rhythms and dysrhythmias: sinus rhythm AV and intraventricular conduction: 2 to 1 AV block
[2021-01-08 05:36] LABS: BUN/Creatinine Ratio 12; Blood Urea Nitrogen 13 mg/dL (9-20); Calcium 8.2 mg/dL (8.4-10.2); Hemolysis Index 8
[2021-01-08] MEDS: POTASSIUM CHLORIDE ER 20 MEQ TAB PO SCH ×3 (08:46→15:47)
[2021-01-08] MEDS: ASPIRIN 325 MG TAB PO SCH (09:00)
[2021-01-08] MEDS: SACUBITRIL/VALSARTAN 24-26 MG TAB PO SCH (09:00)
[2021-01-08] MEDS: HEPARIN 5,000 UNIT/1 ML VIAL SUB-Q SCH (09:00)
[2021-01-08] MEDS: carvediloL 6.25 MG TAB PO SCH (09:00)
[2021-01-08] MEDS ORDERED: MAGNESIUM SULFATE 3 GM in SODIUM CHLORIDE 0.9% 100 ML IV ONE (09:00)
[2021-01-08] MEDS ORDERED: FUROSEMIDE 20 MG TAB PO SCH (10:00)
--- NOTE | 2021-01-08 10:00 | Progress Note ---
Assessment and Plan NSTEMI * Patient is currently chest pain free. Troponins are elevated but trending downward, currently subacute and nonspecific. Continue to trend CE's. * Patient had left heart cath at [facility] in 2017 which showed normal coronary arteries. Compensated heart failure with reduced ejection fraction in setting of dilated cardiomyopathy * Echocardiogram reviewed (01/16/2021): LVEF is 25%. Moderate concentric LVH. Left ventricle is moderately dilated. Left ventricular diastolic function is indeterminate. Severe hypokinesis involving the septal, anterior and anterior lateral seay. Right ventricle is moderately dilated. Left atrium is moderately dilated. Mild mitral regurg. * Patient does appear to be near euvolemia and is currently asymptomatic. Discontinue duretics. * Continue goal-directed therapy with cardioprotective regimen: ASA 81, Coreg 6.25 twice daily, initiate lisinopril 10 mg daily. No statin due to low ch olesterol. Patient is not chronically diuresed at home. Hypokalemia * Replete potassium. Acute kidney injury * No CASPER/ARB in setting of OCTAVIO. Avoid nephrotoxic agents DVT prophylaxis * Heparin SQ Patient is nearing euvolemia. Patient may discharge on current cardiac regimen from cardiac standpoint once hypokalemia is addressed. Will follow on as-needed basis Patient should follow-up with Dr. Jace Flor, [facility] heart specialists within 1 to 2 weeks of discharge (scheduling pending). #[phone] This patient was seen in conjunction with who agrees this assessment plan of care - Patient Problems (1) Heart failure Current Visit: Yes Status: Acute (2) DVT prophylaxis Current Visit: Yes Status: Acute (3) NSTEMI (non-ST elevated myocardial infarction) Current Visit: Yes Status: Acute (4) Hypokalemia Current Visit: Yes Status: Acute (5) Acute kidney injury Current Visit: Yes Status: Acute Subjective Date of service: 01/08/21 Principal diagnosis: NSTEMI, HFrEF Interval history: Patient resting comfortably in bed. No shortness of breath or chest pain overnight Telemetry reviewed sinus rhythm 95. No events Objective Last Vital Signs Temp 98.3 F 01/08/21 07:11 Pulse 81 01/08/21 09:00 Resp 18 01/08/21 08:00 BP 132/102 01/08/21 09:00 Pulse Ox 96 01/08/21 08:00 - Physical Examination General: No Apparent Distress HEENT: Positive: PERRL, Normocephaly, Mucus Membranes Moist Neck: Positive: neck supple, trachea midline Cardiac: Positive: Reg Rate and Rhythm, S1/S2 Lungs: Positive: Normal Exam, Normal Breath Sounds Neuro: Positive: Grossly Intact Abdomen: Positive: Soft Skin: Negative: Rash, Wound Musculoskeletal: No Pain Extremities: Present: upper extr. pulses, lower extr. pulses. Absent: edema - Labs and Meds Comprehensive Metabolic Panel 01/07/21 01/08/21 Range/Units 18:25 04:09 Sodium 144 (137-145) mmol/L Potassium 3.2 L 3.0 L (3.6-5.0) mmol/L Chloride 104.3 (98-107) mmol/L Carbon Dioxide 27 (22-30) mmol/L BUN 13 (9-20) mg/dL Creatinine 1.1 (0.8-1.3) mg/dL Glucose 81 (75-100) mg/dL Calcium 8.2 L (8.4-10.2) mg/dL - Imaging and Cardiology EKG: report reviewed, image reviewed Echo: report reviewed - Telemetry EKG Rhythm: Sinus Rhythm - EKG Sinus rhythms and dysrhythmias: sinus rhythm AV and intraventricular conduction: 2 to 1 AV block
[2021-01-08 11:58] VITALS: BP 131/65
[2021-01-08] MEDS ORDERED: LISINOPRIL 10 MG TAB PO SCH (12:00)
--- NOTE | 2021-01-08 13:30 | Discharge Summary ---
Providers - Providers Date of Admission: 01/05/21 19:15 Date of discharge: 01/08/21 Attending physician: FOREST GOYAL 01/05/21 Consult to Cardiac Rehabilitation [CONS] Routine Reason For Exam: Phase I 01/05/21 18:45 Consult to Physician [CONS] Urgent Comment: Consulting Provider: DUNIA HILLS Physician Instructions: Reason For Exam: acute chf 01/06/21 16:17 Consult to Cardiac Rehabilitation [CONS] Routine Reason For Exam: Cardiomyopathy Additional Notes/Special Instructions: Please evaluate patient for outpatient cardiac rehab in setting of new or worsening diagnosis of severe cardiomyopathy Primary care physician: REAL ESTATE MARKETING COORDINATOR Hospitalization Condition: Fair Hospital course: 45 YO Male with CHF, Nicotine Dependence, HTN, Medication Noncompliance presents to ED for evaluation. Pt presented with shortness of breath. Patient states that he has experienced shortness of breath, decreased exercise tolerance, dyspnea on exertion, dyspnea at rest, orthopnea, paroxysmal nocturnal dyspnea over the past 1 week with persistently worsening symptoms over the same timeframe. Patient transported to [facility] via private vehicle for further care and evaluation of the aforementioned symptoms. The patient was seen and evaluated in the emergency department. All lab and imaging studies reviewed. Patient found to have clinical symptoms consistent with CHF decompensation as well as lab findings consistent with type II NSTEMI. Patient admitted to telemetry and initiated on ACS protocol. Cardiology team consulted in ED. Patient denies fever, chills, chest pain, palpitation, productive cough, skin rash, recent ill contacts, trauma, unilateral leg swelling, calf pain, prolonged travel/immobility, individual/family history of DVT/PE/bleeding/blood clotting disorders, or known exposure to COVID-19. He was admitted, evaluated by Cardiology. He was treated with lasix, Coreg and improved. He had OCTAVIO, so lasix held for few days..Patient subsequently discharged home on 01/08/21. Acute on chronic congestive heart failure Patient admitted to Telemetry. CHF Protocol: Strict I/O, supplemental oxygen, chest x ray, diuresis with lasix, Echo done report pending cardiology consulted in ED, blood pressure control Elevated Troponin Troponins were elevated 1.6 - 1.4 - 1.3 ACS protocol, serial cardiac enzymes, supplemental oxygen, nitro, aspirin. cardiology consulted. No chest pain currently Added Aspirin 325 mg daily Added Metoprolol 25mg bid Hypertensive urgency Monitor BP q shift, continue medical management. Added metoprolol Hydralazine iv prn for uyncontrolled BP Noncompliance Pt counseled DVT prophylaxis SCD to BLE while in bed, Full code 01/07/21 Patient presented with shortness of breath diagnosed with acute on chronic CHF. Echo done, report pending. 01/08/21 patient with NSTEMI, acute on chronic systolic CHF . He feels better. Stable to discharge home as per csardiology. OCTAVIO resolved. Disposition: DC-01 TO HOME OR SELFCARE Final Discharge Diagnosis (Prints w/discharge instructions): 1.NSTEMI. 2.Acute on chronic systolic CHF - Discharge Diagnoses (1) NSTEMI (non-ST elevated myocardial infarction) Status: Acute (2) Acute on chronic systolic (congestive) heart failure Status: Acute (3) Acute kidney injury Status: Acute Comment: due to vsomotor nephropathy (4) Hypokalemia Status: Acute (5) Hypomagnesemia Status: Acute Core Measure Documentation - Palliative Care Palliative Care/ Comfort Measures: Not Applicable - Core Measures Any of the following diagnoses?: acute SC - Acute SC Discharge Requirements Aspirin at discharge: Yes CASPER/ARB for LVSD if EF <40%: Yes Beta mariel at discharge: Yes Statin for LDL = or >100 mg/dl on DC: Yes - Heart Failure Discharge Requirements CASPER/ARB for LVSD if EF <40%: Yes Beta mariel at discharge: Yes Exam - Constitutional Vitals: Temp Pulse Resp BP Pulse Ox 98.2 F 78 18 131/65 91 01/08/21 11:49 01/08/21 11:57 01/08/21 11:49 01/08/21 11:57 01/08/21 11:49 Plan Activity: other (No strenous activity until cleared by cardiology) Diet: low fat, low cholesterol, low salt Special Instructions: other (1.Follow up with PCP in 1 week. 2.Follow up with Dr. Bhavna Ward, cardiology in 1-2 weeks 3.Repeat BMP in 1 week) Plan of Treatment: 1.Follow up with PCP in 1 week. 2.Follow up with Dr. Bhavna Flor, Cardiology within 1-2 weeks. 3.Repeat BMP in 1 week Follow up with: PRIMARY CARE, [Primary Care Provider] - 7 Days Prescriptions: Aspirin 325 mg PO QDAY #30 tablet carvediloL [Coreg] 6.25 mg PO BID #60 tablet Potassium Chloride [K-Dur] 40 meq PO DAILY 14 Days #14 tab Furosemide [Lasix] 40 mg PO DAILY #30 tablet Magnesium Oxide 400 mg PO BID 14 Days #28 tablet Simvastatin 20 mg PO QHS #30 tablet lisinopriL [Zestril TAB] 10 mg PO QDAY #30 tablet
--- NOTE | 2021-01-09 18:34 | Electrocardiograph Report ---
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
--- NOTE | 2021-01-09 18:57 | Electrocardiograph Report ---
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
--- NOTE | 2021-01-09 19:02 | Electrocardiograph Report ---
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
== END 2021-01-08 16:25 | disposition home or self-care (01) | DRG 281 ==
LOC: ED 15:59 → 4A 19:15
PROVIDERS: ADMIT Internal Medicine; ATTEND Internal Medicine
DX: I11.0 Hypertensive heart disease with heart failure (principal); I21.A1 Myocardial infarction type 2; N17.9 Acute kidney failure, unspecified; I50.23 Acute on chronic systolic (congestive) heart failure; I16.0 Hypertensive urgency; F17.200 Nicotine dependence, unspecified, uncomplicated; Z91.14 Patient's other noncompliance with medication regimen; Z82.49 Family history of ischemic heart disease and other diseases of the circulatory system; I42.8 Other cardiomyopathies; E87.6 Hypokalemia
CPT/HCPCS: 36415; 71046; 80048; 80053; 80061; 82550; 82553; 82962; 83735; 83880; 84132; 84484; 85025; 85027; 85610; 85730; 90686; 93005; 93306; 96365; 96375; G0378; J0360; J1644; J1940; J3475; J3480

== ENCOUNTER 2021-09-17 15:05 | Inpatient (IN) | payer SELFPAY ==
--- NOTE | 2021-09-17 19:03 | XRay Report ---
CHEST 2 VIEWS INDICATION / CLINICAL INFORMATION: sob. COMPARISON: Chest x-ray 01/05/2021 FINDINGS: SUPPORT DEVICES: None. HEART / MEDIASTINUM: Mild cardiomegaly stable. Mild prominence of central vasculature unchanged. LUNGS / PLEURA: No significant pulmonary or pleural abnormality. No pneumothorax. ADDITIONAL FINDINGS: No significant additional findings. IMPRESSION: 1. Stable mild cardiomegaly. No active process. Signer Name: Talon Merida II, MD Signed: 09/17/2021 6:58 PM Workstation Name: [id number]
--- NOTE | 2021-09-17 19:36 | Emergency Department Report ---
ED Extremity Problem HPI - General Chief complaint: Extremity Problem,Nontraumatic Stated complaint: BOTH FEET SWOLLEN Time Seen by Provider: 09/17/21 18:06 Source: patient Mode of arrival: Wheelchair Limitations: No Limitations - History of Present Illness Initial comments: 46-year-old male with a past medical history of hypertension CHF EF of 25% hailee von work-up here in December 2020 presents to the hospital presenting with progressive worsening lower extremity edema for several weeks and dyspnea with exertion. Patient denies chest pain, orthopnea, or PND. He also denies cough, fever, infectious symptoms. Is compliant with all his medications that were prescribed during his December admission however, took his last dose of lisinopril yesterday. He continues to take furosemide and carvedilol but does not take the other medications last listed on his discharge summary. Patient has not followed up with the PMD or optical lens manufacturing tech since discharge from the hospital and has been continue to refill his prescribed medications pharmacy. Patient is vaccinated for COVID x2 and it is too early for him to receive a booster at this time - Related Data Previous Rx's Medication Instructions Recorded Last Taken Type Aspirin 325 mg PO QDAY #30 tablet 01/08/21 Unknown Rx Furosemide [Lasix] 40 mg PO DAILY #30 tablet 01/08/21 Unknown Rx Magnesium Oxide 400 mg PO BID 14 Days #28 tablet 01/08/21 Unknown Rx Potassium Chloride [K-Dur] 40 meq PO DAILY 14 Days #14 tab 01/08/21 Unknown Rx Simvastatin 20 mg PO QHS #30 tablet 01/08/21 Unknown Rx carvediloL [Coreg] 6.25 mg PO BID #60 tablet 01/08/21 Unknown Rx lisinopriL [Zestril TAB] 10 mg PO QDAY #30 tablet 01/08/21 Unknown Rx Allergies Allergy/AdvReac Type Severity Reaction Status Date / Time No Known Allergies Allergy Unverified 01/05/21 16:04 ED Review of Systems ROS: Stated complaint: BOTH FEET SWOLLEN Other details as noted in HPI Comment: All other systems reviewed and negative ED Past Medical Hx - Past Medical History Hx Hypertension: Yes Hx Congestive Heart Failure: Yes Hx Diabetes: No Hx Asthma: No Hx COPD: No - Social History Smoking Status: Former Smoker - Medications Home Medications: Home Medications Medication Instructions Recorded Confirmed Last Taken Type Aspirin 325 mg PO QDAY #30 tablet 01/08/21 Unknown Rx Furosemide [Lasix] 40 mg PO DAILY #30 tablet 01/08/21 Unknown Rx Magnesium Oxide 400 mg PO BID 14 Days #28 tablet 01/08/21 Unknown Rx Potassium Chloride [K-Dur] 40 meq PO DAILY 14 Days #14 tab 01/08/21 Unknown Rx Simvastatin 20 mg PO QHS #30 tablet 01/08/21 Unknown Rx carvediloL [Coreg] 6.25 mg PO BID #60 tablet 01/08/21 Unknown Rx lisinopriL [Zestril TAB] 10 mg PO QDAY #30 tablet 01/08/21 Unknown Rx ED Physical Exam - General Limitations: No Limitations - Other Other exam information: General: No acute distress Head: Atraumatic Eyes: normal appearance ENT: Moist mucous membranes Neck: Normal appearance, no midline tenderness Chest: Clear to auscultation bilaterally CV: Regular rate and rhythm Abdomen: Soft, normal bowel sounds, nontender, nondistended, no rebound or guarding Back: Normal inspection Extremity: Bilateral wearing 3+ pitting edema to lower extremities with pitting edema extending up to the lower abdominal wall. No warmth, erythema, or leg asymmetry Neuro: Alert O x 3, no facial asymmetry, speech clear, no gross motor sensory deficit Psych: Appropriate behavior Skin: No rash ED Course Vital Signs 09/17/21 16:16 Temperature 98.5 F Pulse Rate 99 H Respiratory 18 Rate Blood Pressure 165/115 [Right] O2 Sat by Pulse 97 Oximetry ED Medical Decision Making - Lab Data Result diagrams: 09/17/21 19:12 09/17/21 19:12 Lab Results 09/17/21 09/17/21 09/17/21 Range/Units 19:12 19:12 19:12 WBC 5.0 (4.5-11.0) K/mm3 RBC 5.14 H (3.65-5.03) M/mm3 Hgb 11.7 L (11.8-15.2) gm/dl Hct 37.0 (35.5-45.6) % MCV 72 L (84-94) fl MCH 23 L (28-32) pg MCHC 32 (32-34) % RDW 21.1 H (13.2-15.2) % Plt Count 250 (140-440) K/mm3 PT 15.9 H (12.2-14.9) Sec. INR 1.15 H (0.87-1.13) APTT 32.9 (24.2-36.6) Sec. Sodium 144 (137-145) mmol/L Potassium 4.0 (3.6-5.0) mmol/L Chloride 105.0 (98-107) mmol/L Carbon Dioxide 23 (22-30) mmol/L Anion Gap 20 mmol/L BUN 14 (9-20) mg/dL Creatinine 1.5 H (0.8-1.3) mg/dL Estimated GFR > 60 ml/min BUN/Creatinine Ratio 9 % Glucose 84 (75-100) mg/dL Calcium 8.7 (8.4-10.2) mg/dL Total Bilirubin 1.90 H (0.1-1.2) mg/dL AST 9 (5-40) units/L ALT < 5 L (7-56) units/L Alkaline Phosphatase 63 (35-129) units/L Troponin T 0.025 (0.00-0.029) ng/mL NT-Pro-B Natriuret Pep 17006 H (0-450) pg/mL Total Protein 6.6 (6.3-8.2) g/dL Albumin 3.4 L (3.9-5) g/dL Albumin/Globulin Ratio 1.1 % - EKG Data -: EKG Interpreted by Nm EKG shows normal: sinus rhythm, ST-T waves (no stemi) - EKG Data When compared to previous EKG there are: no significant change - Radiology Data Radiology results: report reviewed CHEST 2 VIEWS INDICATION / CLINICAL INFORMATION: sob. COMPARISON: Chest x-ray 01/05/2021 FINDINGS: SUPPORT DEVICES: None. HEART / MEDIASTINUM: Mild cardiomegaly stable. Mild prominence of central vasculature unchanged. LUNGS / PLEURA: No significant pulmonary or pleural abnormality. No pneumothorax. ADDITIONAL FINDINGS: No significant additional findings. IMPRESSION: 1. Stable mild cardiomegaly. No active process. - Medical Decision Making 46-year-old male presents to the hospital complaining of grossly worsening lower extremity edema despite medication compliance. Worsening renal function noted with elevation of BNP. Chest x-ray unremarkable. Lasix provided in the ED. Patient admitted for decompensated CHF to hospitalist service Critical Care Time: No Critical care attestation.: If time is entered above; I have spent that time in minutes in the direct care of this critically ill patient, excluding procedure time. ED Disposition Clinical Impression: Acute decompensated heart failure, Bilateral leg edema, Acute renal insufficiency, Uncontrolled hypertension Disposition: 09 ADMITTED INPATIENT Is pt being admited?: Yes Condition: Stable
[2021-09-17 19:39] LABS: Hemoglobin 11.7 gm/dl (11.8-15.2); Mean Corpuscular HGB Conc 32 % (32-34); Mean Corpuscular Volume 72 fl (84-94); Platelet Count 250 K/mm3 (140-440); Red Blood Count 5.14 M/mm3 (3.65-5.03)
[2021-09-17 19:47] LABS: INR 1.15 (0.87-1.13); Red Cell Distribution Width 21.1 % (13.2-15.2)
[2021-09-17 19:48] LABS: Partial Thromboplastin Time 32.9 Sec. (24.2-36.6)
[2021-09-17 19:53] LABS: Albumin 3.4 g/dL (3.9-5); BUN/Creatinine Ratio 9; Blood Urea Nitrogen 14 mg/dL (9-20); Calcium 8.7 mg/dL (8.4-10.2); Hemolysis Index 5
[2021-09-17 19:58] LABS: Alanine Aminotransferase < 5 units/L (7-56)
[2021-09-17] MEDS ORDERED: FUROSEMIDE 40 MG/4 ML INJ IV ONE (20:37)
[2021-09-17] MEDS ORDERED: ALBUTEROL 2.5 MG/3 ML NEBU IH PRN (21:54)
[2021-09-17] MEDS ORDERED: ACETAMINOPHEN 325 MG TAB PO PRN (21:54)
[2021-09-17] MEDS ORDERED: NITROGLYCERIN 0.4 MG TAB SUBL SL PRN (21:54)
[2021-09-17] MEDS ORDERED: ONDANSETRON 4 MG/2 ML INJ IV PRN (21:54)
[2021-09-17] MEDS ORDERED: HYDROmorphone 1 MG/1 ML INJ IV PRN (21:54)
[2021-09-17] MEDS ORDERED: NON-FORMULARY EACH (Simvastatin [Simvastatin] 20 MG Tablet) PO SCH (22:00)
--- NOTE | 2021-09-17 22:03 | History and Physical Report ---
History of Present Illness Date of examination: 09/17/21 Date of admission: 09/17/21 Chief complaint: Lower extremity swelling History of present illness: 46-year-old male with a past medical history of hypertension CHF EF of 25% was brought to the emergency room because of progressive worsening lower extremity edema for several weeks and dyspnea with exertion. Patient denies chest pain, orthopnea, or PND. He also denies cough, fever, infectious symptoms. Patient is compliant with all his medications that were prescribed during his December admission however, took his last dose of lisinopril yesterday. He continues to take furosemide and carvedilol but does not take the other medications last listed on his discharge summary. Patient has not followed up with the PMD or seafood specialist since discharge from the hospital and has been continue to refill his prescribed medications pharmacy. Patient is vaccinated for COVID x2 and it is too early for him to receive a booster at this time In the emergency room patient is found to [place] [address]. Still going to admit the patient we will put the patient on Lasix 40 mg IV every 12 hours, echocardiogram and cardiology evaluation Past History Past Medical History: heart failure, hypertension Social history: smoking Medications and Allergies Allergies Allergy/AdvReac Type Severity Reaction Status Date / Time No Known Allergies Allergy Unverified 01/05/21 16:04 Home Medications Medication Instructions Recorded Confirmed Last Taken Type Aspirin 325 mg PO QDAY #30 tablet 01/08/21 Unknown Rx Furosemide [Lasix] 40 mg PO DAILY #30 tablet 01/08/21 Unknown Rx Magnesium Oxide 400 mg PO BID 14 Days #28 tablet 01/08/21 Unknown Rx Potassium Chloride [K-Dur] 40 meq PO DAILY 14 Days #14 tab 01/08/21 Unknown Rx Simvastatin 20 mg PO QHS #30 tablet 01/08/21 Unknown Rx carvediloL [Coreg] 6.25 mg PO BID #60 tablet 01/08/21 Unknown Rx lisinopriL [Zestril TAB] 10 mg PO QDAY #30 tablet 01/08/21 Unknown Rx Review of Systems Cardiovascular: edema, shortness of breath, dyspnea on exertion Respiratory: shortness of breath, dyspnea on exertion Exam - Constitutional Vitals: Temp Pulse Resp BP Pulse Ox 98.5 F 99 H 18 165/115 97 09/17/21 16:16 09/17/21 16:16 09/17/21 16:16 09/17/21 16:16 09/17/21 16:16 General appearance: Present: no acute distress, well-nourished - EENT Eyes: Present: PERRL ENT: hearing intact, clear oral mucosa - Neck Neck: Present: supple, normal ROM - Respiratory Respiratory effort: normal Respiratory: bilateral: rales - Cardiovascular Heart Sounds: Present: S1 & S2. Absent: rub, click - Extremities Extremities: pulses symmetrical, No edema Peripheral Pulses: within normal limits - Abdominal General gastrointestinal: Present: soft, non-tender, non-distended, normal bowel sounds Male genitourinary: Present: normal - Integumentary Integumentary: Present: clear, warm, dry - Musculoskeletal Musculoskeletal: gait normal, strength equal bilaterally - Psychiatric Psychiatric: appropriate mood/affect, intact judgment & insight - Neurologic Neurologic: CNII-XII intact, moves all extremities HEART Score - HEART Score Troponin: Troponin T 0.022 ng/mL (0.00-0.029) 09/17/21 21:09 Results - Labs CBC & Chem 7: 09/17/21 19:12 09/17/21 19:12 Labs: Laboratory Last Values WBC 5.0 K/mm3 (4.5-11.0) 09/17/21 19:12 RBC 5.14 M/mm3 (3.65-5.03) H 09/17/21 19:12 Hgb 11.7 gm/dl (11.8-15.2) L 09/17/21 19:12 Hct 37.0 % (35.5-45.6) 09/17/21 19:12 MCV 72 fl (84-94) L 09/17/21 19:12 MCH 23 pg (28-32) L 09/17/21 19:12 MCHC 32 % (32-34) 09/17/21 19:12 RDW 21.1 % (13.2-15.2) H 09/17/21 19:12 Plt Count 250 K/mm3 (140-440) 09/17/21 19:12 PT 15.9 Sec. (12.2-14.9) H 09/17/21 19:12 INR 1.15 (0.87-1.13) H 09/17/21 19:12 APTT 32.9 Sec. (24.2-36.6) 09/17/21 19:12 Sodium 144 mmol/L (137-145) 09/17/21 19:12 Potassium 4.0 mmol/L (3.6-5.0) 09/17/21 19:12 Chloride 105.0 mmol/L (98-107) 09/17/21 19:12 Carbon Dioxide 23 mmol/L (22-30) 09/17/21 19:12 Anion Gap 20 mmol/L 09/17/21 19:12 BUN 14 mg/dL (9-20) 09/17/21 19:12 Creatinine 1.5 mg/dL (0.8-1.3) H 09/17/21 19:12 Estimated GFR > 60 ml/min 09/17/21 19:12 BUN/Creatinine Ratio 9 % 09/17/21 19:12 Glucose 84 mg/dL (75-100) 09/17/21 19:12 Calcium 8.7 mg/dL (8.4-10.2) 09/17/21 19:12 Total Bilirubin 1.90 mg/dL (0.1-1.2) H 09/17/21 19:12 AST 9 units/L (5-40) 09/17/21 19:12 ALT < 5 units/L (7-56) L 09/17/21 19:12 Alkaline Phosphatase 63 units/L (35-129) 09/17/21 19:12 Troponin T 0.022 ng/mL (0.00-0.029) 09/17/21 21:09 NT-Pro-B Natriuret Pep 51896 pg/mL (0-450) H 09/17/21 19:12 Total Protein 6.6 g/dL (6.3-8.2) 09/17/21 19:12 Albumin 3.4 g/dL (3.9-5) L 09/17/21 19:12 Albumin/Globulin Ratio 1.1 % 09/17/21 19:12 - Imaging and Cardiology Chest x-ray: report reviewed Assessment and Plan VTE prophylaxis?: Chemical Plan of care discussed with patient/family: Yes - Patient Problems (1) Acute on chronic systolic (congestive) heart failure Current Visit: No Status: Acute Plan to address problem: Admit the patient to the medical floor. Fluid restriction. Maintain input out put. Daily weight. Lasix 40 mg IV every 12 hours. Echocardiogram. Cardiology evaluation (2) CAD (coronary artery disease) Current Visit: Yes Status: Acute Plan to address problem: Aspirin 325 mg p.o. daily. Coreg 6.25 mg p.o. twice daily. Simvastatin 20 mg p.o. nightly. Cardiology evaluation (3) Hypertension Current Visit: Yes Status: Acute Plan to address problem: Lisinopril 10 mg p.o. daily. Coreg 6.25 mg p.o. twice daily (4) Tobacco abuse Current Visit: Yes Status: Acute Plan to address problem: We counseled regarding quitting smoking. Nicotine patch if needed (5) DVT prophylaxis Current Visit: No Status: Acute Plan to address problem: Heparin 5000 units subcu every 8 hours for DVT prophylaxis. Pepcid 20 mg p.o. twice daily for GI prophylaxis. Patient is a full code
[2021-09-17] MEDS: carvediloL 6.25 MG TAB PO SCH (23:23)
[2021-09-17] MEDS: HEPARIN 5,000 UNIT/1 ML VIAL SUB-Q SCH (23:24)
[2021-09-17] MEDS: FAMOTIDINE 20 MG TAB PO SCH (23:24)
[2021-09-17] MEDS: MAGNESIUM OXIDE 400 MG TAB PO SCH (23:24)
[2021-09-18] MEDS: PRAVASTATIN 40 MG TAB PO SCH ×2 (00:37→21:55)
[2021-09-18 00:43] LABS: Anisocytosis 1+; Basophils % (Manual) 0 % (0.0-1.8); Hypochromasia 1+; Total Cells Counted 100
[2021-09-18 00:45] LABS: Platelet Estimate Consistent w Auto; Poikilocytosis 1+
[2021-09-18] MEDS ORDERED: IPRATROPIUM/ALBUTEROL SULFATE 3 ML AMPUL.NEB IH SCH (02:00)
[2021-09-18] MEDS: FUROSEMIDE 40 MG/4 ML INJ IV SCH ×2 (05:55→17:17)
[2021-09-18 05:59] LABS: Basophils # (Auto) 0.1 K/mm3 (0.0-0.1); Basophils % (Auto) 1.5 % (0.0-1.8); Eosinophils % (Auto) 0.9 % (0.0-4.3); Hematocrit 34.1 % (35.5-45.6); Hemoglobin 10.5 gm/dl (11.8-15.2); Lymphocytes # (Auto) 0.8 K/mm3 (1.2-5.4); Lymphocytes % (Auto) 16.7 % (13.4-35.0); Mean Corpuscular HGB Conc 31 % (32-34); Mean Corpuscular Volume 72 fl (84-94); Monocytes # (Auto) 0.5 K/mm3 (0.0-0.8); Monocytes % (Auto) 9.3 % (0.0-7.3); Platelet Count 222 K/mm3 (140-440); Red Blood Count 4.74 M/mm3 (3.65-5.03)
[2021-09-18 06:15] LABS: Red Cell Distribution Width 20.1 % (13.2-15.2)
[2021-09-18 06:19] LABS: BUN/Creatinine Ratio 10; Blood Urea Nitrogen 15 mg/dL (9-20); Calcium 8.5 mg/dL (8.4-10.2); Hemolysis Index 4
[2021-09-18] MEDS: IPRATROPIUM/ALBUTEROL SULFATE 3 ML AMPUL.NEB IH SCH (08:34)
[2021-09-18] MEDS: MAGNESIUM OXIDE 400 MG TAB PO SCH ×2 (09:29→21:59)
[2021-09-18] MEDS: FAMOTIDINE 20 MG TAB PO SCH ×2 (09:29→21:57)
[2021-09-18] MEDS: POTASSIUM CHLORIDE ER 20 MEQ TAB PO SCH (09:29)
[2021-09-18] MEDS: ASPIRIN 325 MG TAB PO SCH (09:29)
[2021-09-18] MEDS: carvediloL 6.25 MG TAB PO SCH ×2 (09:30→22:04)
[2021-09-18] MEDS: HEPARIN 5,000 UNIT/1 ML VIAL SUB-Q SCH ×2 (09:30→21:54)
[2021-09-18] MEDS ORDERED: LISINOPRIL 10 MG TAB PO SCH (10:00)
--- NOTE | 2021-09-18 10:04 | Electrocardiograph Report ---
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
--- NOTE | 2021-09-18 10:18 | Electrocardiograph Report ---
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 Electronically Signed On 09-18-2021 10:18:22 EST by Tariq Romano
--- NOTE | 2021-09-18 12:48 | Consultation ---
History of Present Illness Consult date: 09/18/21 Requesting physician: ARTURO HUGHES Consult reason: congestive heart failure History of present illness: Patient is a 46-year-old male with a past medical history of of HFrEF, dilated cardiomyopathy EF 25%, hypertension, LVH, history of alcohol abuse who came to the ED yesterday evening due to complaints of worsening bilateral lower extremity edema and some shortness of breath that has been going on for about 2 to 3 weeks. Patient states over the last couple weeks he has noticed increasing swelling of his legs. He states that the reason he finally came in was because he could not walk because his legs were so swollen and painful. Patient also reports some dyspnea on exertion. However patient denies orthopnea, chest pain, PND. Patient reports that he is compliant with his medications however he states that he has not been compliant with his fluid restriction. He states he has been drinking a lots of fluids. Patient was previously seen by our practice in a prior admission in December 2020. Patient follows up with Dr. Flor of our group as an outpatient. Cardiology is consulted for CHF. Past History Past Medical History: heart failure, hypertension Past Surgical History: No surgical history Social history: other (History of alcohol abuse) Family history: hypertension Medications and Allergies Allergies Allergy/AdvReac Type Severity Reaction Status Date / Time No Known Allergies Allergy Unverified 01/05/21 16:04 Home Medications Medication Instructions Recorded Confirmed Last Taken Type Aspirin 325 mg PO QDAY #30 tablet 01/08/21 Unknown Rx Furosemide [Lasix] 40 mg PO DAILY #30 tablet 01/08/21 09/18/21 09/17/21 Rx Magnesium Oxide 400 mg PO BID 14 Days #28 tablet 01/08/21 Unknown Rx Potassium Chloride [K-Dur] 40 meq PO DAILY 14 Days #14 tab 01/08/21 Unknown Rx Simvastatin 20 mg PO QHS #30 tablet 01/08/21 Unknown Rx carvediloL [Coreg] 6.25 mg PO BID #60 tablet 01/08/21 Unknown Rx lisinopriL [Zestril TAB] 10 mg PO QDAY #30 tablet 01/08/21 09/18/21 09/17/21 Rx Active Meds: Active Medications Acetaminophen (Acetaminophen 325 Mg Tab) 650 mg PO Q4H PRN PRN Reason: Pain MILD(1-3)/Fever >100.5/MCLEOD Albuterol (Albuterol 2.5 Mg/3 Ml Nebu) 2.5 mg IH Q3HRT PRN PRN Reason: Shortness Of Breath Albuterol/Ipratropium (Ipratropium/Albuterol Sulfate 3 Ml Ampul.Neb) 1 ampul IH TIDRT [facility] Last Admin: 09/18/21 08:34 Dose: Not Given Aspirin (Aspirin 325 Mg Tab) 325 mg PO QDAY [facility] Last Admin: 09/18/21 09:29 Dose: 325 mg Carvedilol (Carvedilol 6.25 Mg Tab) 6.25 mg PO BID [facility] Last Admin: 09/18/21 09:30 Dose: 6.25 mg Famotidine (Famotidine 20 Mg Tab) 20 mg PO BID [facility] Last Admin: 09/18/21 09:29 Dose: 20 mg Furosemide (Furosemide 40 Mg/4 Ml Inj) 40 mg IV BID@0600,1800 [facility] Last Admin: 09/18/21 05:55 Dose: 40 mg Heparin Sodium (Porcine) (Heparin 5,000 Unit/1 Ml Vial) 5,000 unit SUB-Q Q12HR [facility] Last Admin: 09/18/21 09:30 Dose: 5,000 unit Hydromorphone HCl (Hydromorphone 1 Mg/1 Ml Inj) 0.5 mg IV Q3H PRN PRN Reason: Pain , Severe (7-10) Lisinopril (Lisinopril 10 Mg Tab) 10 mg PO QDAY [facility] Last Admin: 09/18/21 09:30 Dose: 10 mg Magnesium Oxide (Magnesium Oxide 400 Mg Tab) 400 mg PO BID [facility] Last Admin: 09/18/21 09:29 Dose: 400 mg Morphine Sulfate (Morphine 2 Mg/1 Ml Inj) 2 mg IV Q4H PRN PRN Reason: Pain, Moderate (4-6) Nitroglycerin (Nitroglycerin 0.4 Mg Tab Subl) 0.4 mg SL .Q5MIN PRN PRN Reason: Chest Pain Ondansetron HCl (Ondansetron 4 Mg/2 Ml Inj) 4 mg IV Q8H PRN PRN Reason: Nausea And Vomiting Potassium Chloride (Potassium Chloride Er 20 Meq Tab) 40 meq PO DAILY [facility] Last Admin: 09/18/21 09:29 Dose: 40 meq Pravastatin Sodium (Pravastatin 40 Mg Tab) 40 mg PO QHS [facility] Last Admin: 09/18/21 00:37 Dose: Not Given Sodium Chloride (Sodium Chloride 0.9% 10 Ml Flush Syringe) 10 ml IV BID [facility] Last Admin: 09/18/21 09:30 Dose: 10 ml Sodium Chloride (Sodium Chloride 0.9% 10 Ml Flush Syringe) 10 ml IV PRN PRN PRN Reason: LINE FLUSH Review of Systems Constitutional: no weight loss, no weight gain, no fever, no chills Ears, nose, mouth and throat: no nasal congestion, no nasal discharge, no sinus pressure, no sinus pain Cardiovascular: edema, shortness of breath, no chest pain, no orthopnea, no palpitations Respiratory: shortness of breath Gastrointestinal: no abdominal pain, no nausea, no vomiting Musculoskeletal: no neck stiffness, no neck pain, no shooting arm pain Integumentary: no rash, no pruritis, no redness Neurological: no head injury, no transient paralysis, no paralysis Psychiatric: no anxiety Endocrine: no cold intolerance, no heat intolerance Hematologic/Lymphatic: no easy bruising, no easy bleeding Physical Examination Vital Signs Temp Pulse Resp BP Pulse Ox 98.5 F 99 H 18 165/115 97 09/17/21 16:16 09/17/21 16:16 09/17/21 16:16 09/17/21 16:16 09/17/21 16:16 General appearance: no acute distress HEENT: Positive: Normocephaly Neck: Positive: trachea midline Cardiac: Positive: Reg Rate and Rhythm Lungs: Positive: Decreased Breath Sounds Neuro: Positive: Grossly Intact Abdomen: Positive: Soft Skin: Negative: Rash, Suspicious Lesions, Ulceration Extremities: Present: upper extr. pulses, +2 Edema Results 09/18/21 05:30 09/18/21 05:30 Cardiac Enzymes 09/17/21 Range/Units 19:12 AST 9 (5-40) units/L Coagulation 09/17/21 Range/Units 19:12 PT 15.9 H (12.2-14.9) Sec. INR 1.15 H (0.87-1.13) APTT 32.9 (24.2-36.6) Sec. CBC 09/17/21 09/18/21 Range/Units 19:12 05:30 WBC 5.0 4.9 (4.5-11.0) K/mm3 RBC 5.14 H 4.74 (3.65-5.03) M/mm3 Hgb 11.7 L 10.5 L (11.8-15.2) gm/dl Hct 37.0 34.1 L (35.5-45.6) % Plt Count 250 222 (140-440) K/mm3 Lymph # (Auto) 0.8 L (1.2-5.4) K/mm3 [place] # (Auto) 0.5 (0.0-0.8) K/mm3 Eos # (Auto) 0.0 (0.0-0.4) K/mm3 Baso # (Auto) 0.1 (0.0-0.1) K/mm3 Comprehensive Metabolic Panel 09/17/21 09/18/21 Range/Units 19:12 05:30 Sodium 144 146 H (137-145) mmol/L Potassium 4.0 3.8 (3.6-5.0) mmol/L Chloride 105.0 108.2 H (98-107) mmol/L Carbon Dioxide 23 24 (22-30) mmol/L BUN 14 15 (9-20) mg/dL Creatinine 1.5 H 1.5 H (0.8-1.3) mg/dL Glucose 84 91 (75-100) mg/dL Calcium 8.7 8.5 (8.4-10.2) mg/dL AST 9 (5-40) units/L ALT < 5 L (7-56) units/L Alkaline Phosphatase 63 (35-129) units/L Total Protein 6.6 (6.3-8.2) g/dL Albumin 3.4 L (3.9-5) g/dL - Imaging and Cardiology Echo: report reviewed Cardiac cath: report reviewed EKG interpretations - Telemetry EKG Rhythm: Sinus Rhythm - EKG Sinus rhythms and dysrhythmias: sinus rhythm AV and intraventricular conduction: left bundle branch block Assessment and Plan Patient is a 46-year-old male with a past medical history of of HFrEF, dilated cardiomyopathy EF 25%, hypertension, LVH, history of alcohol abuse who came to the ED due to complaints of worsening bilateral lower extremity edema and some shortness of breath that has been going on for about 2 to 3 weeks. Acute on chronic HFrEF OCTAVIO Hypertension Dilated cardiomyopathy History of alcohol abuse Echocardiogram 01/16/2021: LVEF is 25%. Moderate concentric LVH. Left ventricle is moderately dilated. Left ventricular diastolic function is indeterminate. Severe hypokinesis involving the septal, anterior and anterior lateral seay. Right ventricle is moderately dilated. Left atrium is moderately dilated. Mild mitral regurg. Echo 09/17/2021-EF 20%. LV is moderately dilated. Severe global hypokinesis of LV. Severe diastolic dysfunction is present restrictive filling pattern. Right ventricle is dilated. Right ventricle is hypokinetic. Left atrium is mildly dilated. Mild mitral regurgitation. Mild tricuspid regurgitation. Moderate pulmonary hypertension IVC is dilated in size and collapses greater than 50% with inspiration Right/left heart catheterization 04/21/2017- Near-normal coronary arteries. Minor plaque was noted2. Euvolemic state with RA 8 mmHg, PCWP 10 mmHg, LVEDP 15 mmHg3. Preserved CO/CI4. Low systemic blood pressure Outpatient medications: Coreg 6.25 mg p.o. twice daily, Lasix 20 mg p.o. daily, lisinopril 10 mg p.o. daily Plan: EKG shows sinus 84 probable left atrial enlargement. Incomplete left bundle branch block. No acute ischemic changes. Troponins negative x3. Patient denies any complaint of chest pain. AMI ruled out BNP noted to be elevated. Patient also noted to have bilateral lower extremity pitting edema. Continue diuresis with Lasix 40 mg IV twice daily. Strict I&O's and repeat BMP in a.m. Creatinine noted to be elevated possibly result of volume overload. If creatinine does not improve with diuresis may wish to consider nephrology consult Continue outpatient medication Coreg, and lisinopril Patient seen in conjunction with Dr. Romano who agrees with this plan of care - Patient Problems (1) Acute on chronic HFrEF (heart failure with reduced ejection fraction) Current Visit: Yes Status: Acute (2) Dilated cardiomyopathy Current Visit: Yes Status: Acute (3) Bilateral leg edema Current Visit: Yes Status: Acute (4) Hypertension Current Visit: Yes Status: Acute (5) Acute kidney injury Current Visit: No Status: Acute
[2021-09-18] MEDS: MORPHINE 2 MG/1 ML INJ IV PRN ×2 (17:17→22:05)
--- NOTE | 2021-09-18 17:25 | Progress Note ---
Assessment and Plan Assessment and plan: #Acute on chronic systolic heart failure - prior TTE (12/2020) revealing EF 25% - CXR revealing enlarged cardiac silohuette, proBNP 23,5000 - pending TTE to evaluate EF - continue IV lasix 40mg BID, strict I/Os, fluid restrict 1.5L/day - Cardiology consulted; appreciate recs - continue to monitor #CAD #Hypertension - continue ASA 81mg, coreg 6.25mg BID, simvastatin 20mg daily, and lisinopril 10mg daily #Advanced care planning -Disease education conducted, care plan discussed, diagnoses discussed, prognosis discussed, and patient acknowledges understanding with care plan -Time: +30 min Disposition Plan: Continue medical management Total Time Spent with Patient (Minutes): 45 minutes History Interval history: No acute events overnight. Hospitalist Physical - Constitutional Vitals: Temp Pulse Resp BP Pulse Ox 99.4 F 94 H 22 109/71 98 09/18/21 01:44 09/18/21 01:44 09/18/21 06:07 09/18/21 03:50 09/18/21 07:19 General appearance: Present: no acute distress, well-nourished - EENT Eyes: Present: PERRL, EOM intact ENT: hearing intact, clear oral mucosa, dentition normal - Neck Neck: Present: supple, normal ROM - Respiratory Respiratory effort: normal Respiratory: bilateral: CTA - Cardiovascular Rhythm: regular Heart Sounds: Present: S1 & S2 - Extremities Extremities: no ischemia, pulses intact, pulses symmetrical, normal temperature, normal color, Full ROM Extremity abnormal: edema (2+ pitting edema to bilateral upper thigh) Peripheral Pulses: within normal limits - Abdominal General gastrointestinal: soft, non-tender, non-distended, normal bowel sounds - Integumentary Integumentary: Present: clear, warm, dry - Psychiatric Psychiatric: appropriate mood/affect, intact judgment & insight, memory intact, cooperative - Neurologic Neurologic: CNII-XII intact, moves all extremities - Allied Health Allied health notes reviewed: nursing HEART Score - HEART Score Troponin: Troponin T 0.025 ng/mL (0.00-0.029) 09/18/21 00:25 Results - Labs CBC & Chem 7: 09/18/21 05:30 09/18/21 05:30 Labs: Laboratory Last Values WBC 4.9 K/mm3 (4.5-11.0) 09/18/21 05:30 RBC 4.74 M/mm3 (3.65-5.03) 09/18/21 05:30 Hgb 10.5 gm/dl (11.8-15.2) L 09/18/21 05:30 Hct 34.1 % (35.5-45.6) L 09/18/21 05:30 MCV 72 fl (84-94) L 09/18/21 05:30 MCH 22 pg (28-32) L 09/18/21 05:30 MCHC 31 % (32-34) L 09/18/21 05:30 RDW 20.1 % (13.2-15.2) H 09/18/21 05:30 Plt Count 222 K/mm3 (140-440) 09/18/21 05:30 Lymph % (Auto) 16.7 % (13.4-35.0) 09/18/21 05:30 [place] % (Auto) 9.3 % (0.0-7.3) H 09/18/21 05:30 Eos % (Auto) 0.9 % (0.0-4.3) 09/18/21 05:30 Baso % (Auto) 1.5 % (0.0-1.8) 09/18/21 05:30 Lymph # (Auto) 0.8 K/mm3 (1.2-5.4) L 09/18/21 05:30 [place] # (Auto) 0.5 K/mm3 (0.0-0.8) 09/18/21 05:30 Eos # (Auto) 0.0 K/mm3 (0.0-0.4) 09/18/21 05:30 Baso # (Auto) 0.1 K/mm3 (0.0-0.1) 09/18/21 05:30 Add Manual Diff Complete 09/17/21 19:12 Total Counted 100 09/17/21 19:12 Seg Neutrophils % 71.6 % (40.0-70.0) H 09/18/21 05:30 Seg Neuts % (Manual) 79.0 % (40.0-70.0) H 09/17/21 19:12 Band Neutrophils % 0 % 09/17/21 19:12 Lymphocytes % (Manual) 17.0 % (13.4-35.0) 09/17/21 19:12 Reactive Lymphs % (Man) 0 % 09/17/21 19:12 Monocytes % (Manual) 3.0 % (0.0-7.3) 09/17/21 19:12 Eosinophils % (Manual) 1.0 % (0.0-4.3) 09/17/21 19:12 Basophils % (Manual) 0 % (0.0-1.8) 09/17/21 19:12 Metamyelocytes % 0 % 09/17/21 19:12 Myelocytes % 0 % 09/17/21 19:12 Promyelocytes % 0 % 09/17/21 19:12 Blast Cells % 0 % 09/17/21 19:12 Nucleated RBC % Not Reportable 09/17/21 19:12 Seg Neutrophils # 3.5 K/mm3 (1.8-7.7) 09/18/21 05:30 Seg Neutrophils # Man 4.0 K/mm3 (1.8-7.7) 09/17/21 19:12 Band Neutrophils # 0.0 K/mm3 09/17/21 19:12 Lymphocytes # (Manual) 0.9 K/mm3 (1.2-5.4) L 09/17/21 19:12 Abs React Lymphs (Man) 0.0 K/mm3 09/17/21 19:12 Monocytes # (Manual) 0.2 K/mm3 (0.0-0.8) 09/17/21 19:12 Eosinophils # (Manual) 0.1 K/mm3 (0.0-0.4) 09/17/21 19:12 Basophils # (Manual) 0.0 K/mm3 (0.0-0.1) 09/17/21 19:12 Metamyelocytes # 0.0 K/mm3 09/17/21 19:12 Myelocytes # 0.0 K/mm3 09/17/21 19:12 Promyelocytes # 0.0 K/mm3 09/17/21 19:12 Blast Cells # 0.0 K/mm3 09/17/21 19:12 WBC Morphology Not Reportable 09/17/21 19:12 Hypersegmented Neuts Not Reportable 09/17/21 19:12 Hyposegmented Neuts Not Reportable 09/17/21 19:12 Hypogranular Neuts Not Reportable 09/17/21 19:12 Smudge Cells Not Reportable 09/17/21 19:12 Toxic Granulation Not Reportable 09/17/21 19:12 Toxic Vacuolation Not Reportable 09/17/21 19:12 Dohle Bodies Not Reportable 09/17/21 19:12 Pelger-Huet Anomaly Not Reportable 09/17/21 19:12 Edelmira Rods Not Reportable 09/17/21 19:12 Platelet Estimate Consistent w auto 09/17/21 19:12 Clumped Platelets Not Reportable 09/17/21 19:12 Plt Clumps, EDTA Not Reportable 09/17/21 19:12 Large Platelets Not Reportable 09/17/21 19:12 Giant Platelets Not Reportable 09/17/21 19:12 Platelet Satelliting Not Reportable 09/17/21 19:12 Plt Morphology Comment Not Reportable 09/17/21 19:12 RBC Morphology Not Reportable 09/17/21 19:12 Dimorphic RBCs Not Reportable 09/17/21 19:12 Polychromasia Not Reportable 09/17/21 19:12 Hypochromasia 1+ 09/17/21 19:12 Poikilocytosis 1+ 09/17/21 19:12 Anisocytosis 1+ 09/17/21 19:12 Microcytosis Not Reportable 09/17/21 19:12 Macrocytosis Not Reportable 09/17/21 19:12 Spherocytes Not Reportable 09/17/21 19:12 Pappenheimer Bodies Not Reportable 09/17/21 19:12 Sickle Cells Not Reportable 09/17/21 19:12 Target Cells Not Reportable 09/17/21 19:12 Tear Drop Cells Not Reportable 09/17/21 19:12 Ovalocytes Not Reportable 09/17/21 19:12 Helmet Cells Not Reportable 09/17/21 19:12 Coyle-[place] Bodies Not Reportable 09/17/21 19:12 [place] Rings Not Reportable 09/17/21 19:12 Gridley Cells Not Reportable 09/17/21 19:12 Bite Cells Not Reportable 09/17/21 19:12 Crenated Cell Not Reportable 09/17/21 19:12 Elliptocytes Not Reportable 09/17/21 19:12 Acanthocytes (Spur) Not Reportable 09/17/21 19:12 Rouleaux Not Reportable 09/17/21 19:12 Hemoglobin C Crystals Not Reportable 09/17/21 19:12 Schistocytes Not Reportable 09/17/21 19:12 Malaria parasites Not Reportable 09/17/21 19:12 Shlomo Bodies Not Reportable 09/17/21 19:12 Hem Pathologist Commnt No 09/17/21 19:12 PT 15.9 Sec. (12.2-14.9) H 09/17/21 19:12 INR 1.15 (0.87-1.13) H 09/17/21 19:12 APTT 32.9 Sec. (24.2-36.6) 09/17/21 19:12 Sodium 146 mmol/L (137-145) H 09/18/21 05:30 Potassium 3.8 mmol/L (3.6-5.0) 09/18/21 05:30 Chloride 108.2 mmol/L (98-107) H 09/18/21 05:30 Carbon Dioxide 24 mmol/L (22-30) 09/18/21 05:30 Anion Gap 18 mmol/L 09/18/21 05:30 BUN 15 mg/dL (9-20) 09/18/21 05:30 Creatinine 1.5 mg/dL (0.8-1.3) H 09/18/21 05:30 Estimated GFR > 60 ml/min 09/18/21 05:30 BUN/Creatinine Ratio 10 % 09/18/21 05:30 Glucose 91 mg/dL (75-100) 09/18/21 05:30 Calcium 8.5 mg/dL (8.4-10.2) 09/18/21 05:30 Total Bilirubin 1.90 mg/dL (0.1-1.2) H 09/17/21 19:12 AST 9 units/L (5-40) 09/17/21 19:12 ALT < 5 units/L (7-56) L 09/17/21 19:12 Alkaline Phosphatase 63 units/L (35-129) 09/17/21 19:12 Troponin T 0.025 ng/mL (0.00-0.029) 09/18/21 00:25 NT-Pro-B Natriuret Pep 16900 pg/mL (0-450) H 09/17/21 19:12 Total Protein 6.6 g/dL (6.3-8.2) 09/17/21 19:12 Albumin 3.4 g/dL (3.9-5) L 09/17/21 19:12 Albumin/Globulin Ratio 1.1 % 09/17/21 19:12 Laboy/IV: Voiding Method Urinal Active Medications - Current Medications Current Medications: Generic Name Dose Route Start Last Admin Trade Name Freq PRN Reason Stop Dose Admin Acetaminophen 650 mg 09/17/21 21:54 Acetaminophen 325 Mg Tab PO Q4H PRN Pain MILD(1-3)/Fever >100.5/MCLEOD Albuterol 2.5 mg 09/17/21 21:54 Albuterol 2.5 Mg/3 Ml Nebu IH Q3HRT PRN Shortness Of Breath Aspirin 325 mg 09/18/21 10:00 09/18/21 09:29 Aspirin 325 Mg Tab PO 325 mg QDAY SANKET Administration Carvedilol 6.25 mg 09/17/21 22:00 09/18/21 09:30 Carvedilol 6.25 Mg Tab PO 6.25 mg BID SANKET Administration Famotidine 20 mg 09/17/21 22:00 09/18/21 09:29 Famotidine 20 Mg Tab PO 20 mg BID SANKET Administration Furosemide 40 mg 09/18/21 06:00 09/18/21 17:17 Furosemide 40 Mg/4 Ml Inj IV 40 mg BID@0600,1800 SANKET Administration Heparin Sodium (Porcine) 5,000 unit 09/17/21 22:00 09/18/21 09:30 Heparin 5,000 Unit/1 Ml Vial SUB-Q 5,000 unit Q12HR SANKET Administration Hydromorphone HCl 0.5 mg 09/17/21 21:54 Hydromorphone 1 Mg/1 Ml Inj IV Q3H PRN Pain , Severe (7-10) Lisinopril 10 mg 09/18/21 10:00 09/18/21 09:30 Lisinopril 10 Mg Tab PO 10 mg QDAY SANKET Administration Magnesium Oxide 400 mg 09/17/21 22:00 09/18/21 09:29 Magnesium Oxide 400 Mg Tab PO 400 mg BID SANKET Administration Morphine Sulfate 2 mg 09/17/21 21:54 09/18/21 17:17 Morphine 2 Mg/1 Ml Inj IV 2 mg Q4H PRN Administration Pain, Moderate (4-6) Nitroglycerin 0.4 mg 09/17/21 21:54 Nitroglycerin 0.4 Mg Tab Subl SL .Q5MIN PRN Chest Pain Ondansetron HCl 4 mg 09/17/21 21:54 Ondansetron 4 Mg/2 Ml Inj IV Q8H PRN Nausea And Vomiting Potassium Chloride 40 meq 09/18/21 10:00 09/18/21 09:29 Potassium Chloride Er 20 Meq Tab PO 40 meq DAILY SANKET Administration Pravastatin Sodium 40 mg 09/17/21 22:00 09/18/21 00:37 Pravastatin 40 Mg Tab PO Not Given QHS SANKET Sodium Chloride 10 ml 09/17/21 22:00 09/18/21 09:30 Sodium Chloride 0.9% 10 Ml Flush Syringe IV 10 ml BID SANKET Administration Sodium Chloride 10 ml 09/17/21 21:54 Sodium Chloride 0.9% 10 Ml Flush Syringe IV PRN PRN LINE FLUSH
[2021-09-19] MEDS: FUROSEMIDE 40 MG/4 ML INJ IV SCH ×2 (05:08→17:42)
[2021-09-19 05:46] LABS: Alanine Aminotransferase < 5 units/L (7-56); BUN/Creatinine Ratio 11; Blood Urea Nitrogen 16 mg/dL (9-20); Calcium 8.5 mg/dL (8.4-10.2); Hemolysis Index 9
[2021-09-19] MEDS ORDERED: carvediloL 6.25 MG TAB PO SCH (09:14)
--- NOTE | 2021-09-19 09:18 | Progress Note ---
Assessment and Plan Assessment and plan: #Acute on chronic systolic heart failure - prior TTE (12/2020) revealing EF 25% - CXR revealing enlarged cardiac silohuette, proBNP 23,5000 - TTE (09/18/2021) revealing EF 20% with moderately dilated LV, LV systolic function is severely decreased, severe global hypokinesis of the LV, severe diastolic dysfunction. RV is hypokinetic and dilated. RVSP is 51 mmHg - continue IV lasix 40mg BID, strict I/Os, fluid restrict 1.5L/day - Cardiology consulted; appreciate recs - continue to monitor #Right lower extremity edema Given in the setting of hypervolemia, the right lower extremity is significantly larger than the left Ordering venous Doppler to evaluate for possible DVT. Continue to monitor. #CAD #Hypertension - continue ASA 81mg and simvastatin 20 mg daily. Increasing Coreg to 12.5 mg twice daily and lisinopril to 20 mg daily. #Advanced care planning -Disease education conducted, care plan discussed, diagnoses discussed, prognosis discussed, and patient acknowledges understanding with care plan -Time: +30 min Disposition Plan: Continue medical management Total Time Spent with Patient (Minutes): 30 minutes History Interval history: No acute events overnight. Hospitalist Physical - Constitutional Vitals: Temp Pulse Resp BP Pulse Ox 98.6 F 95 H 18 147/105 81 L 09/19/21 05:03 09/19/21 05:03 09/19/21 05:03 09/19/21 05:03 09/19/21 05:03 General appearance: Present: no acute distress, well-nourished - EENT Eyes: Present: PERRL, EOM intact ENT: hearing intact, clear oral mucosa, dentition normal - Neck Neck: Present: supple, normal ROM - Respiratory Respiratory effort: normal Respiratory: bilateral: CTA - Cardiovascular Rhythm: regular Heart Sounds: Present: S1 & S2 - Extremities Extremities: no ischemia, pulses intact, pulses symmetrical, normal temperature, normal color, Full ROM Extremity abnormal: edema Peripheral Pulses: within normal limits - Abdominal General gastrointestinal: soft, non-tender, non-distended, normal bowel sounds - Integumentary Integumentary: Present: clear, warm, dry - Psychiatric Psychiatric: appropriate mood/affect, intact judgment & insight, memory intact, cooperative - Neurologic Neurologic: CNII-XII intact, moves all extremities - Allied Health Allied health notes reviewed: nursing HEART Score - HEART Score Troponin: Troponin T 0.025 ng/mL (0.00-0.029) 09/18/21 00:25 Results - Labs CBC & Chem 7: 09/18/21 05:30 09/19/21 04:40 Labs: Laboratory Last Values WBC 4.9 K/mm3 (4.5-11.0) 09/18/21 05:30 RBC 4.74 M/mm3 (3.65-5.03) 09/18/21 05:30 Hgb 10.5 gm/dl (11.8-15.2) L 09/18/21 05:30 Hct 34.1 % (35.5-45.6) L 09/18/21 05:30 MCV 72 fl (84-94) L 09/18/21 05:30 MCH 22 pg (28-32) L 09/18/21 05:30 MCHC 31 % (32-34) L 09/18/21 05:30 RDW 20.1 % (13.2-15.2) H 09/18/21 05:30 Plt Count 222 K/mm3 (140-440) 09/18/21 05:30 Lymph % (Auto) 16.7 % (13.4-35.0) 09/18/21 05:30 Menard % (Auto) 9.3 % (0.0-7.3) H 09/18/21 05:30 Eos % (Auto) 0.9 % (0.0-4.3) 09/18/21 05:30 Baso % (Auto) 1.5 % (0.0-1.8) 09/18/21 05:30 Lymph # (Auto) 0.8 K/mm3 (1.2-5.4) L 09/18/21 05:30 Menard # (Auto) 0.5 K/mm3 (0.0-0.8) 09/18/21 05:30 Eos # (Auto) 0.0 K/mm3 (0.0-0.4) 09/18/21 05:30 Baso # (Auto) 0.1 K/mm3 (0.0-0.1) 09/18/21 05:30 Add Manual Diff Complete 09/17/21 19:12 Total Counted 100 09/17/21 19:12 Seg Neutrophils % 71.6 % (40.0-70.0) H 09/18/21 05:30 Seg Neuts % (Manual) 79.0 % (40.0-70.0) H 09/17/21 19:12 Band Neutrophils % 0 % 09/17/21 19:12 Lymphocytes % (Manual) 17.0 % (13.4-35.0) 09/17/21 19:12 Reactive Lymphs % (Man) 0 % 09/17/21 19:12 Monocytes % (Manual) 3.0 % (0.0-7.3) 09/17/21 19:12 Eosinophils % (Manual) 1.0 % (0.0-4.3) 09/17/21 19:12 Basophils % (Manual) 0 % (0.0-1.8) 09/17/21 19:12 Metamyelocytes % 0 % 09/17/21 19:12 Myelocytes % 0 % 09/17/21 19:12 Promyelocytes % 0 % 09/17/21 19:12 Blast Cells % 0 % 09/17/21 19:12 Nucleated RBC % Not Reportable 09/17/21 19:12 Seg Neutrophils # 3.5 K/mm3 (1.8-7.7) 09/18/21 05:30 Seg Neutrophils # Man 4.0 K/mm3 (1.8-7.7) 09/17/21 19:12 Band Neutrophils # 0.0 K/mm3 09/17/21 19:12 Lymphocytes # (Manual) 0.9 K/mm3 (1.2-5.4) L 09/17/21 19:12 Abs React Lymphs (Man) 0.0 K/mm3 09/17/21 19:12 Monocytes # (Manual) 0.2 K/mm3 (0.0-0.8) 09/17/21 19:12 Eosinophils # (Manual) 0.1 K/mm3 (0.0-0.4) 09/17/21 19:12 Basophils # (Manual) 0.0 K/mm3 (0.0-0.1) 09/17/21 19:12 Metamyelocytes # 0.0 K/mm3 09/17/21 19:12 Myelocytes # 0.0 K/mm3 09/17/21 19:12 Promyelocytes # 0.0 K/mm3 09/17/21 19:12 Blast Cells # 0.0 K/mm3 09/17/21 19:12 WBC Morphology Not Reportable 09/17/21 19:12 Hypersegmented Neuts Not Reportable 09/17/21 19:12 Hyposegmented Neuts Not Reportable 09/17/21 19:12 Hypogranular Neuts Not Reportable 09/17/21 19:12 Smudge Cells Not Reportable 09/17/21 19:12 Toxic Granulation Not Reportable 09/17/21 19:12 Toxic Vacuolation Not Reportable 09/17/21 19:12 Dohle Bodies Not Reportable 09/17/21 19:12 Pelger-Huet Anomaly Not Reportable 09/17/21 19:12 Edelmira Rods Not Reportable 09/17/21 19:12 Platelet Estimate Consistent w auto 09/17/21 19:12 Clumped Platelets Not Reportable 09/17/21 19:12 Plt Clumps, EDTA Not Reportable 09/17/21 19:12 Large Platelets Not Reportable 09/17/21 19:12 Giant Platelets Not Reportable 09/17/21 19:12 Platelet Satelliting Not Reportable 09/17/21 19:12 Plt Morphology Comment Not Reportable 09/17/21 19:12 RBC Morphology Not Reportable 09/17/21 19:12 Dimorphic RBCs Not Reportable 09/17/21 19:12 Polychromasia Not Reportable 09/17/21 19:12 Hypochromasia 1+ 09/17/21 19:12 Poikilocytosis 1+ 09/17/21 19:12 Anisocytosis 1+ 09/17/21 19:12 Microcytosis Not Reportable 09/17/21 19:12 Macrocytosis Not Reportable 09/17/21 19:12 Spherocytes Not Reportable 09/17/21 19:12 Pappenheimer Bodies Not Reportable 09/17/21 19:12 Sickle Cells Not Reportable 09/17/21 19:12 Target Cells Not Reportable 09/17/21 19:12 Tear Drop Cells Not Reportable 09/17/21 19:12 Ovalocytes Not Reportable 09/17/21 19:12 Helmet Cells Not Reportable 09/17/21 19:12 Coyle-[place] Bodies Not Reportable 09/17/21 19:12 [place] Rings Not Reportable 09/17/21 19:12 [place] Cells Not Reportable 09/17/21 19:12 Bite Cells Not Reportable 09/17/21 19:12 Crenated Cell Not Reportable 09/17/21 19:12 Elliptocytes Not Reportable 09/17/21 19:12 Acanthocytes (Spur) Not Reportable 09/17/21 19:12 Rouleaux Not Reportable 09/17/21 19:12 Hemoglobin C Crystals Not Reportable 09/17/21 19:12 Schistocytes Not Reportable 09/17/21 19:12 Malaria parasites Not Reportable 09/17/21 19:12 Shlomo Bodies Not Reportable 09/17/21 19:12 Hem Pathologist Commnt No 09/17/21 19:12 PT 15.9 Sec. (12.2-14.9) H 09/17/21 19:12 INR 1.15 (0.87-1.13) H 09/17/21 19:12 APTT 32.9 Sec. (24.2-36.6) 09/17/21 19:12 Sodium 143 mmol/L (137-145) 09/19/21 04:40 Potassium 3.8 mmol/L (3.6-5.0) 09/19/21 04:40 Chloride 104.5 mmol/L (98-107) 09/19/21 04:40 Carbon Dioxide 24 mmol/L (22-30) 09/19/21 04:40 Anion Gap 18 mmol/L 09/19/21 04:40 BUN 16 mg/dL (9-20) 09/19/21 04:40 Creatinine 1.5 mg/dL (0.8-1.3) H 09/19/21 04:40 Estimated GFR > 60 ml/min 09/19/21 04:40 BUN/Creatinine Ratio 11 % 09/19/21 04:40 Glucose 89 mg/dL (75-100) 09/19/21 04:40 Calcium 8.5 mg/dL (8.4-10.2) 09/19/21 04:40 Total Bilirubin 1.50 mg/dL (0.1-1.2) H 09/19/21 04:40 AST 9 units/L (5-40) 09/19/21 04:40 ALT < 5 units/L (7-56) L 09/19/21 04:40 Alkaline Phosphatase 52 units/L (35-129) 09/19/21 04:40 Troponin T 0.025 ng/mL (0.00-0.029) 09/18/21 00:25 NT-Pro-B Natriuret Pep 85093 pg/mL (0-450) H 09/17/21 19:12 Total Protein 6.3 g/dL (6.3-8.2) 09/19/21 04:40 Albumin 3.0 g/dL (3.9-5) L 09/19/21 04:40 Albumin/Globulin Ratio 0.9 % 09/19/21 04:40 Laboy/IV: Voiding Method Urinal Active Medications - Current Medications Current Medications: Generic Name Dose Route Start Last Admin Trade Name Freq PRN Reason Stop Dose Admin Acetaminophen 650 mg 09/17/21 21:54 Acetaminophen 325 Mg Tab PO Q4H PRN Pain MILD(1-3)/Fever >100.5/MCLEOD Albuterol 2.5 mg 09/17/21 21:54 Albuterol 2.5 Mg/3 Ml Nebu IH Q3HRT PRN Shortness Of Breath Amlodipine Besylate 5 mg 09/19/21 10:00 Amlodipine 5 Mg Tab PO QDAY SANKET Aspirin 325 mg 09/18/21 10:00 09/18/21 09:29 Aspirin 325 Mg Tab PO 325 mg QDAY SANKET Administration Carvedilol 12.5 mg 09/19/21 09:14 Carvedilol 6.25 Mg Tab PO BID SANKET Famotidine 20 mg 09/17/21 22:00 09/18/21 21:57 Famotidine 20 Mg Tab PO 20 mg BID SANKET Administration Furosemide 40 mg 09/18/21 06:00 09/19/21 05:08 Furosemide 40 Mg/4 Ml Inj IV 40 mg BID@0600,1800 SANKET Administration Heparin Sodium (Porcine) 5,000 unit 09/17/21 22:00 09/18/21 21:54 Heparin 5,000 Unit/1 Ml Vial SUB-Q 5,000 unit Q12HR SANKET Administration Hydromorphone HCl 0.5 mg 09/17/21 21:54 Hydromorphone 1 Mg/1 Ml Inj IV Q3H PRN Pain , Severe (7-10) Lisinopril 20 mg 09/19/21 09:14 Lisinopril 10 Mg Tab PO QDAY SANKET Magnesium Oxide 400 mg 09/17/21 22:00 09/18/21 21:59 Magnesium Oxide 400 Mg Tab PO 400 mg BID SANKET Administration Morphine Sulfate 2 mg 09/17/21 21:54 09/18/21 22:05 Morphine 2 Mg/1 Ml Inj IV 2 mg Q4H PRN Administration Pain, Moderate (4-6) Nitroglycerin 0.4 mg 09/17/21 21:54 Nitroglycerin 0.4 Mg Tab Subl SL .Q5MIN PRN Chest Pain Ondansetron HCl 4 mg 09/17/21 21:54 Ondansetron 4 Mg/2 Ml Inj IV Q8H PRN Nausea And Vomiting Potassium Chloride 40 meq 09/18/21 10:00 09/18/21 09:29 Potassium Chloride Er 20 Meq Tab PO 40 meq DAILY SANKET Administration Pravastatin Sodium 40 mg 09/17/21 22:00 09/18/21 21:55 Pravastatin 40 Mg Tab PO 40 mg QHS SANKET Administration Sodium Chloride 10 ml 09/17/21 22:00 09/18/21 21:56 Sodium Chloride 0.9% 10 Ml Flush Syringe IV 10 ml BID SANKET Administration Sodium Chloride 10 ml 09/17/21 21:54 Sodium Chloride 0.9% 10 Ml Flush Syringe IV PRN PRN LINE FLUSH
[2021-09-19] MEDS: ASPIRIN 325 MG TAB PO SCH (09:27)
[2021-09-19] MEDS: MAGNESIUM OXIDE 400 MG TAB PO SCH ×2 (09:27→21:50)
[2021-09-19] MEDS: amLODIPine 5 MG TAB PO SCH (09:29)
[2021-09-19] MEDS: HEPARIN 5,000 UNIT/1 ML VIAL SUB-Q SCH ×2 (09:30→21:53)
[2021-09-19] MEDS: POTASSIUM CHLORIDE ER 20 MEQ TAB PO SCH (09:31)
[2021-09-19] MEDS: LISINOPRIL 10 MG TAB PO SCH (09:31)
[2021-09-19] MEDS: FAMOTIDINE 20 MG TAB PO SCH ×2 (09:31→21:53)
[2021-09-19] MEDS: IPRATROPIUM/ALBUTEROL SULFATE 3 ML AMPUL.NEB IH SCH (11:57)
--- NOTE | 2021-09-19 12:31 | Progress Note ---
Assessment and Plan Acute on chronic HFrEF 25% Dilated cardiomyopathy LVH OCTAVIO Hypertension History of alcohol abuse Echocardiogram 01/16/2021: LVEF is 25%. Moderate concentric LVH. Left ventricle is moderately dilated. Left ventricular diastolic function is indeterminate. Severe hypokinesis involving the septal, anterior and anterior lateral seay. Right ventricle is moderately dilated. Left atrium is moderately dilated. Mild mitral regurg. Echo 09/17/2021-EF 20%. LV is moderately dilated. Severe global hypokinesis of LV. Severe diastolic dysfunction is present restrictive filling pattern. Right ventricle is dilated. Right ventricle is hypokinetic. Left atrium is mildly dilated. Mild mitral regurgitation. Mild tricuspid regurgitation. Moderate pulmonary hypertension IVC is dilated in size and collapses greater than 50% with inspiration Right/left heart catheterization 04/21/2017- Near-normal coronary arteries. Minor plaque was noted2. Euvolemic state with RA 8 mmHg, PCWP 10 mmHg, LVEDP 15 mmHg3. Preserved CO/CI4. Low systemic blood pressure Outpatient medications: Coreg 6.25 mg p.o. twice daily, Lasix 20 mg p.o. daily, lisinopril 10 mg p.o. daily Plan: Continue diuresis Strict I&O's Continue outpatient medication Coreg and lisinopril Subjective Date of service: 09/19/21 Interval history: Patient sitting up in bed states he still short of breath but feels somewhat better Objective Vital Signs Temp Pulse Resp BP Pulse Ox 09/19/21 05:03 98.6 F 95 H 18 147/105 81 L 09/18/21 22:04 119 H 158/109 09/18/21 22:02 99.3 F 119 H 18 158/109 82 L - Physical Examination HEENT: Positive: Normocephaly Neck: Positive: trachea midline Cardiac: Positive: Reg Rate and Rhythm Lungs: Positive: Decreased Breath Sounds Neuro: Positive: Grossly Intact Abdomen: Positive: Soft Skin: Negative: Rash, Suspicious Lesions, Ulceration Extremities: Present: upper extr. pulses, +2 Edema - Labs and Meds Cardiac Enzymes 09/19/21 Range/Units 04:40 AST 9 (5-40) units/L Comprehensive Metabolic Panel 09/19/21 Range/Units 04:40 Sodium 143 (137-145) mmol/L Potassium 3.8 (3.6-5.0) mmol/L Chloride 104.5 (98-107) mmol/L Carbon Dioxide 24 (22-30) mmol/L BUN 16 (9-20) mg/dL Creatinine 1.5 H (0.8-1.3) mg/dL Glucose 89 (75-100) mg/dL Calcium 8.5 (8.4-10.2) mg/dL AST 9 (5-40) units/L ALT < 5 L (7-56) units/L Alkaline Phosphatase 52 (35-129) units/L Total Protein 6.3 (6.3-8.2) g/dL Albumin 3.0 L (3.9-5) g/dL - Imaging and Cardiology Echo: report reviewed Cardiac cath: report reviewed - EKG Sinus rhythms and dysrhythmias: sinus rhythm AV and intraventricular conduction: left bundle branch block
[2021-09-19] MEDS: PRAVASTATIN 40 MG TAB PO SCH (21:50)
[2021-09-19] MEDS: carvediloL 12.5 MG TAB PO SCH (21:52)
[2021-09-20 05:21] LABS: BUN/Creatinine Ratio 15; Blood Urea Nitrogen 18 mg/dL (9-20); Calcium 8.2 mg/dL (8.4-10.2); Hemolysis Index 0
[2021-09-20] MEDS: FUROSEMIDE 40 MG/4 ML INJ IV SCH ×2 (06:14→17:40)
[2021-09-20] MEDS: POTASSIUM CHLORIDE ER 20 MEQ TAB PO SCH (09:01)
[2021-09-20] MEDS: HEPARIN 5,000 UNIT/1 ML VIAL SUB-Q SCH ×2 (09:01→22:06)
[2021-09-20] MEDS: ASPIRIN 325 MG TAB PO SCH (09:02)
[2021-09-20] MEDS: MAGNESIUM OXIDE 400 MG TAB PO SCH ×2 (09:02→22:06)
[2021-09-20] MEDS: FAMOTIDINE 20 MG TAB PO SCH ×2 (09:02→22:06)
[2021-09-20] MEDS: LISINOPRIL 10 MG TAB PO SCH (09:02)
[2021-09-20] MEDS: amLODIPine 5 MG TAB PO SCH (09:02)
[2021-09-20] MEDS: carvediloL 12.5 MG TAB PO SCH ×2 (09:02→22:06)
--- NOTE | 2021-09-20 09:41 | Discharge Summary ---
Providers - Providers Date of Admission: 09/17/21 21:55 Date of discharge: 09/21/21 Attending physician: GYPSY WILLIS MD 09/17/21 21:54 Consult to Physician [CONS] Routine Comment: Consulting Provider: RISHI TRACY Physician Instructions: Reason For Exam: chf 09/19/21 12:06 Physical Therapy Evaluation and Treat [CONS] Routine Comment: Reason For Exam: generalized weakness Primary care physician: BUS MONITOR Hospitalization Reason for admission: Acute on chronic systolic heart failure Condition: Stable Pertinent studies: Reviewed. Procedures: None. Hospital course: 46-year-old male past medical history of hypertension, tobacco dependence, and systolic heart failure (EF of 25%) who presented for worsening lower extremity edema for the previous few weeks. The patient denied chest pain, orthopnea, PND, fevers or chills, or medication noncompliance. However, he did admit to not following up with cardiology or a primary care provider due to lack of insurance. The patient was recently seen at [facility] in December 2020 where he was newly diagnosed with systolic heart failure. On presentation, the patient was found to be hemodynamically stable and had a BNP of 23,500. He was admitted for management of acute on chronic systolic heart failure. Cardiology was consulted, and they recommended medical management. The patient was diuresed with IV Lasix showing some clinical improvement. Due to concerns for possible lower extremity DVT in his right leg, Doppler ultrasound was ordered revealing no DVT but was revealing for a popliteal cyst. The patient is clinically stable for discharge, and he has been counseled on fluid restriction, salt restriction, and medication compliance patient expresses understanding. Disposition: 01 HOME / SELF CARE / HOMELESS Final Discharge Diagnosis (Prints w/discharge instructions): Acute on chronic systolic heart failure, hypertension, CAD, tobacco dependence. Time spent for discharge: 45 min Core Measure Documentation - Palliative Care Palliative Care/ Comfort Measures: Not Applicable - Core Measures Any of the following diagnoses?: none Exam - Constitutional Vitals: Temp Pulse Resp BP Pulse Ox 98.3 F 91 H 16 128/90 97 09/20/21 05:41 09/20/21 05:41 09/20/21 05:41 09/20/21 05:41 09/20/21 07:53 General appearance: Present: no acute distress, well-nourished - EENT Eyes: Present: PERRL, EOM intact ENT: hearing intact, clear oral mucosa - Neck Neck: Present: supple, normal ROM - Respiratory Respiratory effort: normal Respiratory: bilateral: CTA - Cardiovascular Rhythm: regular Heart Sounds: Present: S1 & S2 - Extremities Extremities: no ischemia, pulses intact, pulses symmetrical, normal temperature, normal color, Full ROM Extremity abnormal: edema (1+ pitting edema bilateral lower extremities) Peripheral Pulses: within normal limits - Abdominal General gastrointestinal: Present: soft, non-tender, non-distended, normal bowel sounds Male genitourinary: Present: deferred - Rectal Rectal Exam: deferred - Integumentary Integumentary: Present: clear, warm, dry - Musculoskeletal Musculoskeletal: strength equal bilaterally - Psychiatric Psychiatric: appropriate mood/affect, intact judgment & insight, memory intact, cooperative - Neurologic Neurologic: CNII-XII intact, moves all extremities - Allied Health Allied health notes reviewed: nursing Plan Activity: no restrictions Diet: low salt Special Instructions: restrict fluid intake to (1.5 L/day), smoking cessation Additional Instructions: 46-year-old male past medical history of hypertension, tobacco dependence, and systolic heart failure (EF of 25%) who presented for wor sening lower extremity edema for the previous few weeks. The patient denied chest pain, orthopnea, PND, fevers or chills, or medication noncompliance. However, he did admit to not following up with cardiology or a primary care provider due to lack of insurance. The patient was recently seen at [facility] in December 2020 where he was newly diagnosed with systolic heart failure. On presentation, the patient was found to be hemodynamically stable and had a BNP of 23,500. He was admitted for management of acute on chronic systolic heart failure. Cardiology was consulted, and they recommended medical management. The patient was diuresed with IV Lasix showing some clinical improvement. Due to concerns for possible lower extremity DVT in his right leg, Doppler ultrasound was ordered revealing no DVT but was revealing for a popliteal cyst. The patient is clinically stable for discharge, and he has been counseled on fluid restriction, salt restriction, and medication compliance patient expresses understanding. Care Plan Goals: Patient is medically clear for discharge. Assessment: 46-year-old male past medical history of hypertension, tobacco dependence, and systolic heart failure (EF of 25%) who presented for worsening lower extremity edema for the previous few weeks. The patient denied chest pain, orthopnea, PND, fevers or chills, or medication noncompliance. However, he did admit to not following up with cardiology or a primary care provider due to lack of insurance. The patient was recently seen at [facility] in December 2020 where he was newly diagnosed with systolic heart failure. On presentation, the patient was found to be hemodynamically stable and had a BNP of 23,500. He was admitted for management of acute on chronic systolic heart failure. Cardiology was consulted, and they recommended medical management. The patient was diuresed with IV Lasix showing some clinical improvement. Due to concerns for possible lower extremity DVT in his right leg, Doppler ultrasound was ordered revealing no DVT but was revealing for a popliteal cyst. The patient is clinically stable for discharge, and he has been counseled on fluid restriction, salt restriction, and medication compliance patient expresses understanding. Follow up with: PRIMARY CAREMD [Primary Care Provider] - 3-5 Days Forms: Work/School Release Form Prescriptions: amLODIPine 5 mg PO QDAY #30 tablet Aspirin 81 mg PO QDAY #30 tablet carvediloL [Coreg] 12.5 mg PO BID #60 tablet Furosemide [Lasix] 40 mg PO BID #60 tablet lisinopriL [Zestril TAB] 20 mg PO QDAY #30 tablet
--- NOTE | 2021-09-20 11:09 | Progress Note ---
Assessment and Plan Acute on chronic HFrEF 25% Dilated cardiomyopathy LVH OCTAVIO Hypertension History of alcohol abuse Echocardiogram 01/16/2021: LVEF is 25%. Moderate concentric LVH. Left ventricle is moderately dilated. Left ventricular diastolic function is indeterminate. Severe hypokinesis involving the septal, anterior and anterior lateral seay. Right ventricle is moderately dilated. Left atrium is moderately dilated. Mild mitral regurg. Echo 09/17/2021-EF 20%. LV is moderately dilated. Severe global hypokinesis of LV. Severe diastolic dysfunction is present restrictive filling pattern. Right ventricle is dilated. Right ventricle is hypokinetic. Left atrium is mildly dilated. Mild mitral regurgitation. Mild tricuspid regurgitation. Moderate pulmonary hypertension IVC is dilated in size and collapses greater than 50% with inspiration Right/left heart catheterization 04/21/2017- Near-normal coronary arteries. Minor plaque was noted2. Euvolemic state with RA 8 mmHg, PCWP 10 mmHg, LVEDP 15 mmHg3. Preserved CO/CI4. Low systemic blood pressure Outpatient medications: Coreg 6.25 mg p.o. twice daily, Lasix 20 mg p.o. daily, lisinopril 10 mg p.o. daily Plan: Continue IV diuresis Strict I&O's Continue outpatient medication Coreg and lisinopril Subjective Date of service: 09/20/21 Interval history: Patient sitting up in bed feels somewhat better Objective Vital Signs Temp Pulse Resp BP Pulse Ox 09/20/21 07:53 97 09/20/21 05:41 98.3 F 91 H 16 128/90 94 09/19/21 23:22 98 09/19/21 22:00 97 09/19/21 21:52 99 H 139/105 09/19/21 21:45 98.6 F 99 H 20 139/105 98 09/19/21 18:40 152/106 09/19/21 15:09 97 09/19/21 13:45 78 16 132/92 97 - Physical Examination HEENT: Positive: Normocephaly Neck: Positive: trachea midline Cardiac: Positive: Reg Rate and Rhythm Lungs: Positive: Decreased Breath Sounds Neuro: Positive: Grossly Intact Abdomen: Positive: Soft Skin: Negative: Rash, Suspicious Lesions, Ulceration Extremities: Present: upper extr. pulses, +1 Edema - Labs and Meds Comprehensive Metabolic Panel 09/20/21 Range/Units 04:40 Sodium 136 L (137-145) mmol/L Potassium 3.7 (3.6-5.0) mmol/L Chloride 99.6 (98-107) mmol/L Carbon Dioxide 26 (22-30) mmol/L BUN 18 (9-20) mg/dL Creatinine 1.2 (0.8-1.3) mg/dL Glucose 96 (75-100) mg/dL Calcium 8.2 L (8.4-10.2) mg/dL - Imaging and Cardiology Echo: report reviewed Cardiac cath: report reviewed - EKG Sinus rhythms and dysrhythmias: sinus rhythm AV and intraventricular conduction: left bundle branch block
[2021-09-20] MEDS: PRAVASTATIN 40 MG TAB PO SCH (22:06)
[2021-09-21] MEDS: FUROSEMIDE 40 MG/4 ML INJ IV SCH (06:02)
[2021-09-21] MEDS: MORPHINE 2 MG/1 ML INJ IV PRN (06:04)
--- NOTE | 2021-09-21 07:38 | Vascular Lab Report ---
DUPLEX DOPPLER LOWER EXTREMITY VEINS, RIGHT INDICATION / CLINICAL INFORMATION: Evaluate for possible DVT. TECHNIQUE: Duplex doppler imaging was performed through the veins of the right lower extremity using venous compression and other maneuvers. COMPARISON: None available. FINDINGS: RIGHT COMMON FEMORAL VEIN: Negative. RIGHT FEMORAL VEIN: Negative. RIGHT POPLITEAL VEIN: Negative. RIGHT CALF VEINS: Negative. ADDITIONAL FINDINGS: There is a complex fluid collection noted within the popliteal fossa measuring 7 .4 x 3.2 x 4.1 IMPRESSION: 1. No sonographic evidence for DVT in the right lower extremity. 2. Complex fluid collection within the right popliteal fossa suggesting complicated popliteal cyst. Signer Name: Tj Vasquez DO Signed: 09/19/2021 6:34 PM Workstation Name: [id number]
[2021-09-21] MEDS: ASPIRIN 325 MG TAB PO SCH (09:09)
[2021-09-21] MEDS: carvediloL 12.5 MG TAB PO SCH ×2 (09:09→22:59)
[2021-09-21] MEDS: MAGNESIUM OXIDE 400 MG TAB PO SCH ×2 (09:09→22:35)
[2021-09-21] MEDS: POTASSIUM CHLORIDE ER 20 MEQ TAB PO SCH (09:09)
[2021-09-21] MEDS: LISINOPRIL 10 MG TAB PO SCH (09:09)
[2021-09-21] MEDS: amLODIPine 5 MG TAB PO SCH (09:10)
[2021-09-21] MEDS: FAMOTIDINE 20 MG TAB PO SCH ×2 (09:10→22:34)
[2021-09-21] MEDS: HEPARIN 5,000 UNIT/1 ML VIAL SUB-Q SCH ×2 (09:10→22:35)
--- NOTE | 2021-09-21 14:49 | Progress Note ---
Assessment and Plan Patient is a 46-year-old male with a past medical history of of HFrEF, dilated cardiomyopathy EF 25%, hypertension, LVH, history of alcohol abuse who came to the ED due to complaints of worsening bilateral lower extremity edema and some shortness of breath that has been going on for about 2 to 3 weeks. Acute on chronic HFrEF OCTAVIO Hypertension Dilated cardiomyopathy History of alcohol abuse Echocardiogram 01/16/2021: LVEF is 25%. Moderate concentric LVH. Left ventricle is moderately dilated. Left ventricular diastolic function is indeterminate. Severe hypokinesis involving the septal, anterior and anterior lateral seay. Right ventricle is moderately dilated. Left atrium is moderately dilated. Mild mitral regurg. Echo 09/17/2021-EF 20%. LV is moderately dilated. Severe global hypokinesis of LV. Severe diastolic dysfunction is present restrictive filling pattern. Right ventricle is dilated. Right ventricle is hypokinetic. Left atrium is mildly dilated. Mild mitral regurgitation. Mild tricuspid regurgitation. Moderate pulmonary hypertension IVC is dilated in size and collapses greater than 50% with inspiration Right/left heart catheterization 04/21/2017- Near-normal coronary arteries. Minor plaque was noted2. Euvolemic state with RA 8 mmHg, PCWP 10 mmHg, LVEDP 15 mmHg3. Preserved CO/CI4. Low systemic blood pressure Outpatient medications: Coreg 6.25 mg p.o. twice daily, Lasix 20 mg p.o. daily, lisinopril 10 mg p.o. daily Plan: Continue Coreg and lisinopril Continue diuresis with Lasix Recommendation hospice patient to be discharged this evening. Due to episodes of NSVT on monitor order for LifeVest placed. LifeVest to be fitted as an outpatient Patient should follow-up with Dr. Flor, [facility] physician relations specialist,on 10/16/2021 at our [place] location. Phone #[phone] Patient seen in conjunction with Dr. Becerra who agrees with this plan of care - Patient Problems (1) Acute on chronic HFrEF (heart failure with reduced ejection fraction) Current Visit: Yes Status: Acute (2) Dilated cardiomyopathy Current Visit: Yes Status: Acute (3) Bilateral leg edema Current Visit: Yes Status: Acute (4) Hypertension Current Visit: Yes Status: Acute (5) Acute kidney injury Current Visit: No Status: Acute Subjective Date of service: 09/21/21 Principal diagnosis: Acute on chronic HFrEF Interval history: Patient resting in bed in no acute distress. Patient reports feeling much better Patient sinus 90s with episodes of NSVT Objective Vital Signs Temp Pulse Resp BP Pulse Ox 09/21/21 14:39 98.6 F 89 18 114/78 99 09/21/21 12:06 98.1 F 85 18 116/79 96 09/21/21 09:58 99 09/21/21 07:59 96 09/21/21 06:34 20 09/21/21 06:04 20 09/21/21 05:47 98.3 F 83 20 131/93 85 09/20/21 23:05 18 09/20/21 22:06 95 H 09/20/21 22:05 18 09/20/21 22:02 100.6 F H 95 H 16 124/83 92 09/20/21 22:00 96 09/20/21 17:17 98.0 F 92 H 18 134/88 91 - Physical Examination General: No Apparent Distress HEENT: Positive: Normocephaly Neck: Positive: trachea midline Cardiac: Positive: Reg Rate and Rhythm Lungs: Positive: Normal Breath Sounds Neuro: Positive: Grossly Intact Abdomen: Positive: Soft Skin: Negative: Rash, Suspicious Lesions, Ulceration Extremities: Present: upper extr. pulses, edema - Imaging and Cardiology Echo: report reviewed Cardiac cath: report reviewed - Telemetry EKG Rhythm: Sinus Rhythm - EKG Sinus rhythms and dysrhythmias: sinus rhythm Ventricular dysrhythmias: ventricular premature com, non-sustained ventricular AV and intraventricular conduction: left bundle branch block
[2021-09-21] MEDS ORDERED: FUROSEMIDE 40 MG TAB PO SCH (18:00)
[2021-09-21] MEDS: PRAVASTATIN 40 MG TAB PO SCH (22:35)
[2021-09-21 22:56] VITALS: BP 118/76
== END 2021-09-21 23:55 | disposition home or self-care (01) | DRG 291 ==
LOC: ED 15:05 → 3A 21:55
PROVIDERS: ADMIT Hospitalist; ATTEND Student in an Organized Health Care Education/Training Program
DX: I11.0 Hypertensive heart disease with heart failure (principal); I50.23 Acute on chronic systolic (congestive) heart failure; N17.9 Acute kidney failure, unspecified; I25.10 Atherosclerotic heart disease of native coronary artery without angina pectoris; I42.0 Dilated cardiomyopathy; F17.200 Nicotine dependence, unspecified, uncomplicated; Z71.6 Tobacco abuse counseling; Z82.49 Family history of ischemic heart disease and other diseases of the circulatory system; Z79.899 Other long term (current) drug therapy; Z79.82 Long term (current) use of aspirin
CPT/HCPCS: 36415; 71046; 80048; 80053; 83880; 84484; 85007; 85025; 85610; 85730; 93005; 93010; 93306; 94760; G0378; C8929; J1644; J1940; J2270